=== PATIENT | female | born 1960 | race Caucasian/White ===

== ENCOUNTER → 2018-04-27 15:19 | Outpatient (CLI) | payer OTHER, SELFPAY ==
--- NOTE | 2018-04-27 | DI.MG.S_ITS ---
BILATERAL DIGITAL SCREENING MAMMOGRAM 3D/2D WITH CAD: 04/27/2018 CLINICAL: Routine screening. Baseline exam. No prior exams were available for comparison. The tissue of both breasts is heterogeneously dense. This may lower the sensitivity of mammography. Current study was also evaluated with a Computer Aided Detection (CAD) system. There is architectural distortion in the left breast at 1 o'clock middle depth. No other significant masses, calcifications, or other findings are seen in either breast. IMPRESSION: INCOMPLETE: NEEDS ADDITIONAL IMAGING EVALUATION The architectural distortion in the left breast is indeterminate. Additional views with possible ultrasound are recommended. This exam was interpreted at Station ID: [id number]. NOTE: For mammograms, a report in lay terms will be sent to the patient. Approximately 15% of breast malignancies will not be visualized mammographically. In the management of a palpable breast mass, a negative mammogram must not discourage biopsy of a clinically suspicious lesion. Electronically Signed By: Jannie porter/karlene:04/27/2018 16:28:33 letter sent: Additional Imaging Needed ACR BI-RADS Category 0: Incomplete 3340F
== END ==
PROVIDERS: Family Provider Family Medicine; PCP Family Medicine; Visit Provider Family Medicine
DX: Z12.31 Encounter for screening mammogram for malignant neoplasm of breast (principal)
CPT/HCPCS: 77063; 77067

== ENCOUNTER 2018-05-12 09:32 | Day surgery (SDC) | payer OTHER, SELFPAY ==
[2018-05-12 10:11] VITALS: BP 131/81; PULSE 75; RESP 17; TEMP 36.8; O2SAT 98
[2018-05-12 10:23] VITALS: BMI 26.6
[2018-05-12] MEDS: SODIUM CHLORIDE 0.9% 1,000 ML 200 ML IV (10:25)
--- NOTE | 2018-05-12 10:36 | PM.OP.ENDO ---
Operative Date/Time/Diagnoses Date of procedure: 05/12/18 Time of procedure: 10:36 Pre-op diagnosis: Screening exam. This is his 1st colonoscopy. Post-op diagnosis: same (Two small ascending colon polyps 1 adjacent to the other. Sigmoid diverticulosis. Internal hemorrhoids.) Procedure & Clinicians Study performed: Colonoscopy with cold biopsy Same procedure as scheduled: Yes Indications: Screening Surgeon: Tae Francois Procedure Notes SCOAP/Timeout: Performed Procedure in detail: The patient was placed in the left lateral decubitus position and underwent IV sedation directed by the surgeon consisting of fentanyl and Versed. Digital exam was unremarkable. Prostate fairly flat.. The scope was inserted and advanced through the rectum into the sigmoid, descending, transverse, and ascending colon. Extensive sigmoid diverticulosis was noted.. The cecum was reached identified by the ileocecal valve and the appendiceal opening. The scope was gradually brought out. Polyps were found at[the ascending colon. There were 2 small lesions 1 adjacent to the other. They were biopsy to complete removal.]. The scope ultimately was retroflexed in the rectum. The appearance was remarkable for internal hemorrhoids without ulceration.. The scope was removed and the patient tolerated the procedure well Scope withdrawal time: 6.5 min Sedation minutes: 23 Findings: diverticulosis (Sigmoid), internal hemorrhoids and polyp (Two small polyps in the ascending colon.) Specimen(s): other (Polyps) Complications: none
--- NOTE | 2018-05-12 11:03 | PM.HP.1 ---
History of Present Illness Date Patient Seen: 05/12/18 Time Patient Seen: 11:03 Chief complaint: [id number] Narrative: The patient is woman here for her 1st colonoscopy. She is 57. No blood in her stool no family history of colon cancer. Patient History Surgical History History of vaginal hysterectomy (Resolved) Family & Social History Family History: Reviewed 05/12/18 by Tae Francois MD Social History: household members spouse Meds Home Medications Medication Instructions Recorded Confirmed Type cetirizine 10 mg PO QDAYP #0 tab 05/16/16 05/12/18 History dextroamphetamine-amphetamine 10 mg PO QAM #0 tab 05/16/16 05/12/18 History [Adderall] ascorbic acid (vitamin C) [Vitamin 500 mg PO DAILY 05/12/18 05/12/18 History C] glucosamine [id number] 1 tab PO TID 05/12/18 05/12/18 History ibuprofen 2 tab PO BID PRN 05/12/18 05/12/18 History magnesium oxide 400 mg PO DAILY 05/12/18 05/12/18 History Allergies Allergy/AdvReac Type Severity Reaction Status Date / Time Sulfa (Sulfonamide Allergy Severe Unverified 12/28/17 12:33 Antibiotics) [SULFA (SULFONAMIDE ANTIBIOTICS)] Review of Systems Review of Systems Nasal drip All systems reviewed & are unremarkable except as noted in HPI and below Exam Vital Signs (past 8 hours): - 05/12/18 10:11 Temperature 98.2 F Pulse Rate 75 Respiratory Rate 17 Blood Pressure 131/81 H Pulse Oximetry 98 Oxygen Delivery Method Room Air Narrative Exam Narrative: Operative no apparent distress. Nose is somewhat distorted. Lungs are clear to auscultation no rales rhonchi. Heart regular rate and rhythm without murmur gallop. Abdomen is soft nontender without mass. Liver and spleen are not enlarged. Patient is alert and oriented x3. Assessment & Plan Plan: Assessment/Plan Narrative: Patient for screening colonoscopy. I have discussed the procedure and the rationale with the patient including risks of bleeding, perforation which would necessitate a major operation, failure to find remove all lesions and the potential to tattoo. They appeared to understand and wished to proceed.
--- NOTE | 2018-05-12 11:07 | P.HP_ITS ---
History of Present Illness Date Patient Seen: 05/12/18 Time Patient Seen: 11:03 Chief complaint: [id number] Narrative: The patient is woman here for her 1st colonoscopy. She is 57. No blood in her stool no family history of colon cancer. Patient History Surgical History History of vaginal hysterectomy (Resolved) Family & Social History Family History: Reviewed 05/12/18 by Tae Francois MD Social History: household members spouse Meds Home Medications Medication Instructions Recorded Confirmed Type cetirizine 10 mg PO QDAYP #0 tab 05/16/16 05/12/18 History dextroamphetamine-amphetamine 10 mg PO QAM #0 tab 05/16/16 05/12/18 History [Adderall] ascorbic acid (vitamin C) [Vitamin 500 mg PO DAILY 05/12/18 05/12/18 History C] glucosamine WWj-fis-uwviqdfiib 1 tab PO TID 05/12/18 05/12/18 History ibuprofen 2 tab PO BID PRN 05/12/18 05/12/18 History magnesium oxide 400 mg PO DAILY 05/12/18 05/12/18 History Allergies Allergy/AdvReac Type Severity Reaction Status Date / Time Sulfa (Sulfonamide Allergy Severe Unverified 12/28/17 12:33 Antibiotics) [SULFA (SULFONAMIDE ANTIBIOTICS)] Review of Systems Review of Systems Nasal drip All systems reviewed & are unremarkable except as noted in HPI and below Exam Vital Signs (past 8 hours): - 05/12/18 10:11 Temperature 98.2 F Pulse Rate 75 Respiratory Rate 17 Blood Pressure 131/81 H Pulse Oximetry 98 Oxygen Delivery Method Room Air Narrative Exam Narrative: Operative no apparent distress. Nose is somewhat distorted. Lungs are clear to auscultation no rales rhonchi. Heart regular rate and rhythm without murmur gallop. Abdomen is soft nontender without mass. Liver and spleen are not enlarged. Patient is alert and oriented x3. Assessment & Plan Plan: Assessment/Plan Narrative: Patient for screening colonoscopy. I have discussed the procedure and the rationale with the patient including risks of bleeding, perforation which would necessitate a major operation, failure to find remove all lesions and the potential to tattoo. They appeared to understand and wished to proceed.
--- NOTE | 2018-05-12 11:07 | PM.PREOP ---
Pre-operative Note Interval Note Pre-op Check: Yes History & Physical exam performed today by Physician Changes: No ASA Class (for procedural sedation): I
[2018-05-12] MEDS: MIDAZOLAM 5 MG/5 ML VIAL IV (11:19)
[2018-05-12] MEDS: fentaNYL 250 MCG/5 ML INJ IV (11:19)
--- NOTE | 2018-05-12 11:40 | PM.OP.ENDO ---
Operative Date/Time/Diagnoses Date of procedure: 05/12/18 Time of procedure: 11:40 Pre-op diagnosis: Screening exam. This is her 1st colonoscopy Post-op diagnosis: same (Diverticulosis sigmoid colon) Procedure & Clinicians Study performed: Colonoscopy Same procedure as scheduled: Yes Indications: Screening Surgeon: Tae Francois Procedure Notes SCOAP/Timeout: Performed Procedure in detail: The patient was placed in the left lateral decubitus position and underwent IV sedation directed by the surgeon consisting of fentanyl and Versed. Digital exam was unremarkable. The scope was inserted and advanced through the rectum into the sigmoid, descending, transverse, and ascending colon. The patient was noted to have sigmoid diverticulosis. No other lesions were seen.. The cecum was reached identified by the ileocecal valve and the appendiceal opening. The ileocecal valve was[successfully] cannulated. The terminal ileum was normal in appearance. The scope was gradually brought out. No Polyps were found. The scope was brought into the rectum and I attempted to retroflex the scope. I was not successful. The scope was very slowly brought through the anal canal. The appearance was[normal]. The scope was removed and the patient tolerated the procedure well Scope withdrawal time: 6.75 min Sedation minutes: 26 Findings: diverticulosis (Sigmoid) Specimen(s): none sent Complications: none Recommendations: Colonscopy in 10 years Follow up: as needed Disposition: PACU
[2018-05-12 11:42] VITALS: BP 133/74; PULSE 71; RESP 12; TEMP 36.7; O2SAT 95
[2018-05-12 11:47] VITALS: BP 122/76; PULSE 73; RESP 16; O2SAT 97
[2018-05-12 11:57] VITALS: BP 114/77; PULSE 71; RESP 15; TEMP 36.6; O2SAT 99
--- NOTE | 2018-05-12 12:15 | SUR.PHASEII ---
When changing became a bit lightheaded and laid back flat briefly. Reminded to change position slowly and think about all related to mobility. It is recommended that once home that a nap before anything else would be beneficial.
--- NOTE | 2018-05-12 12:27 | SUR.PHASEII ---
Desired discharge home. Reminded of med effects and recommended slowed/considered mobility as well as nap once leaving hospital.
== END 2018-05-12 12:25 | disposition home or self-care (01) ==
PROVIDERS: Family Provider Family Medicine; PCP Family Medicine; Visit Provider Specialist
PROC: 0DJD8ZZ Inspection of Lower Intestinal Tract, Via Natural or Artificial Opening Endoscopic (ICD-10-PCS; CPT 45378; principal; 2018-05-12 10:45)
DX: Z12.11 Encounter for screening for malignant neoplasm of colon (principal); K57.30 Diverticulosis of large intestine without perforation or abscess without bleeding
CPT/HCPCS: 45378; 99152; 99153; J2250; J3010

== ENCOUNTER → 2018-05-17 13:00 | Outpatient (CLI) | payer OTHER, SELFPAY ==
--- NOTE | 2018-05-17 | DI.US.S_ITS ---
ULTRASOUND OF LEFT BREAST: 05/17/2018 CLINICAL: Patient returns today to evaluate an architectural distortion in the left breast. Comparison is made to exams dated: 05/17/2018 mammogram and 04/27/2018 mammogram - [facility]. Real-time ultrasound of the left breast was performed on the area of interest. IMPRESSION: PROBABLY BENIGN - FOLLOW-UP RECOMMENDED There is no abnormality seen in the left breast to correspond with the architectural distortion in the upper outer quadrant. A follow-up mammogram in 6 months is recommended to demonstrate stability. This exam was interpreted at Station ID: [id number]. Electronically Signed By: Jose valentine/karlene:05/17/2018 19:17:03 letter sent: Followup Recommended Ultrasound BI-RADS: 3 Probably benign
--- NOTE | 2018-05-17 | DI.MG.S_ITS ---
UNILATERAL LEFT DIGITAL DIAGNOSTIC MAMMOGRAM 3D/2D WITH ADDITIONAL VIEWS: 05/17/2018 CLINICAL: Additional evaluation requested from prior study. Comparison is made to exam [facility]. The tissue of the left breast is heterogeneously dense. This may lower the sensitivity of mammography. There is irregular equal density architectural distortion with an indistinct margin in the left breast at 1 o'clock middle depth. This is less prominent. No other significant masses or calcifications are seen in the breast. IMPRESSION: INCOMPLETE: NEEDS ADDITIONAL IMAGING EVALUATION The irregular equal density architectural distortion in the left breast is indeterminate. An ultrasound is recommended. This exam was interpreted at Station ID: [id number]. NOTE: For mammograms, a report in lay terms will be sent to the patient. Approximately 15% of breast malignancies will not be visualized mammographically. In the management of a palpable breast mass, a negative mammogram must not discourage biopsy of a clinically suspicious lesion. Electronically Signed By: Jose valentine/karlene:05/17/2018 13:44:54 letter sent: Need Ultrasound ACR BI-RADS Category 0: Incomplete 3340F
== END ==
PROVIDERS: PCP Family Medicine; Visit Provider Family Medicine
DX: R92.8 Other abnormal and inconclusive findings on diagnostic imaging of breast (principal)
CPT/HCPCS: 76642; 77065; G0279

== ENCOUNTER 2018-08-31 08:52 | Emergency (ER) | payer OTHER, SELFPAY ==
[2018-08-31 08:59] VITALS: BP 177/75; PULSE 58; RESP 20; TEMP 36.7; O2SAT 100; BMI 27.3
--- NOTE | 2018-08-31 09:10 | ED.ANIMALBIT ---
HPI - Animal Bite General Chief Complaint: Animal Bite Stated Complaint: CAT BITE Time Seen by Provider: 08/31/18 08:56 Source: patient Mode of arrival: ambulatory Limitations: no limitations History of Present Illness HPI narrative: Patient states that she was bitten by her cat yesterday. She states the cat occasionally will bite when she is petting it, and that this behavior is not unusual for the cat. She states that the cat bit her right hand, and that she instinctively pulled away, causing the cats to use to slice through her skin and create a small laceration. Patient states that she was seen yesterday by a provider at a different facility, who started her on Augmentin and did an x-ray, which was unremarkable. Patient states that overnight, senna swelling has gone down, but that the red area has increased. Patient denies fevers, chills, or otherwise feeling ill. She states she was not injured in any other way, and has otherwise been without medical concerns recently. No other complaints at this time. Related Data Home Medications Medication Instructions Recorded Confirmed cetirizine 10 mg PO QDAYP #0 tab 05/16/16 05/12/18 dextroamphetamine-amphetamine 10 mg PO QAM #0 tab 05/16/16 05/12/18 [Adderall] ascorbic acid (vitamin C) [Vitamin 500 mg PO DAILY 05/12/18 05/12/18 C] glucosamine [id number]-[id number]-uqrmrajpdg 1 tab PO TID 05/12/18 05/12/18 ibuprofen 2 tab PO BID PRN 05/12/18 05/12/18 magnesium oxide 400 mg PO DAILY 05/12/18 05/12/18 Allergies Allergy/AdvReac Type Severity Reaction Status Date / Time Sulfa (Sulfonamide Allergy Intermediate Rash Verified 08/31/18 09:22 Antibiotics) [SULFA (SULFONAMIDE ANTIBIOTICS)] Review of Systems Review of Systems All systems reviewed & are unremarkable except as noted in HPI and below Constitutional Denies chills, Denies fever(s), Denies lethargy and Denies weakness Eyes Denies change in vision, Denies eye discharge, Denies irritation and Denies loss of vision ENT Ears, Nose, Mouth, and Throat: Denies change in voice, Denies neck pain and Denies sore throat Cardiovascular Denies chest pain, Denies irregular heart rhythm, Denies lightheadedness, Denies palpitations, Denies dyspnea, Denies dyspnea on exertion and Denies orthopnea Respiratory Denies cough, Denies dyspnea, Denies dyspnea on exertion and Denies wheezing Gastrointestinal Gastrointestinal: Denies abdominal pain, Denies change in bowel habits, Denies diarrhea, Denies nausea and Denies vomiting Genitourinary Denies hematuria, Denies flank pain, Denies urinary incontinence and Denies urinary urgency Musculoskeletal Denies neck pain Integumentary/Breasts Denies pruritus, Reports erythema, Reports skin pain (Tenderness over erythematous area), Reports skin swelling (Mild) and Reports wounds Neurologic Denies confusion, Denies loss of vision and Denies weakness Psychiatric Denies anxiety, Denies confusion, Denies depression, Denies homicidal ideation and Denies suicidal ideation Endocrine Denies palpitations Hematologic/Lymphatic Denies easy bruising Allergic/Immunologic Denies wheezing [facility] Medical History Healthy adult (Acute) Surgical History H/O colonoscopy (Acute) History of vaginal hysterectomy (Resolved) Social History household members: spouse Smoking Status: Never smoker Exam Initial Vital Signs Initial Vital Signs: Vital Signs Temperature 98.1 F 08/31/18 08:59 Pulse Rate 58 L 08/31/18 08:59 Respiratory Rate 20 08/31/18 08:59 Blood Pressure 177/75 H 08/31/18 08:59 Pulse Oximetry 100 08/31/18 08:59 Const General: cooperative and well developed Nutritional Appearance: well nourished Orientation: alert, awake, oriented x3 and not confused [facility] Head: normocephalic and atraumatic Ears: external ears normal Nose: external nose normal and No nasal discharge Face and sinus: face symmetric and No dry mucous membranes Mouth: oral mucosae normal and moist mucous membranes Teeth and gingiva: dentition normal Eyes General: appearance normal, both eyes and all related structures Eyelids: eyelids normal Conjunctivae: conjunctivae normal Sclera: sclerae normal Pupils: PERRL EOM: EOM intact bilaterally Neck Neck: normal visual inspection, trachea midline, No lymphadenopathy, No midline deformity and No JVD Lymphatic: No lymphedema Chest Chest: normal inspection of the chest Resp Effort & Inspection: normal respiratory effort, able to speak in complete sentences, no respiratory distress and no use of accessory muscles Auscultation: clear to auscultation bilaterally, no rales, no rhonchi and no wheezes Cardio Rate: regular rate Rhythm: regular rhythm Heart Sounds: no click, no gallops, no murmurs and no rubs Pulses: normal peripheral pulses GI Inspection: non-distended Palpation: soft, no hepatosplenomegaly, No guarding, No pulsatile mass and No tender Auscultation: normal bowel sounds Back/Spine/Pelvis Back: No CVA tenderness Cervical Spine: cervical ROM normal and No pain with cervical ROM Thoracic/Lumbar Spine: thoracic and lumbar spine normal to inspection Skin General: no rashes or lesions noted, erythema (Over dorsum of right hand and wrist. Extends to the 3rd MCP joint dorsally, and to about 5 cm proximal to the wrist joint dorsally. No volar or palmar involvement.), No jaundice and No petechiae Other: No flexor tendon or extensor tendon tenderness. Patient has a 0.75 cm laceration which is linear, over her right dorsal wrist. There is no bleeding, foreign body, or swelling associated with this. No drainage. Patient has a puncture wound 1.5 cm to the ulnar aspect of the laceration. Neuro General: alert, oriented x3, gait normal and no focal motor deficits Speech: speech normal Extrem General: full ROM, no clubbing, cyanosis or edema, no pedal edema and no calf tenderness Psych Appearance: well kempt Mental Status: mental status grossly normal Attitude: cooperative Thought Content: normal and suicidality Judgment: judgment good Course Course Narrative: Patient was treated with Unasyn in the emergency department, and her tetanus was also updated. The patient will go home and continue her Augmentin, but we have discussed that if the infected area continues to worsen over the next 12 hr, she should come back for another dose of IV antibiotics on recheck. The other, usual indications for return have also been given. Patient expresses understanding. Orders Ordered: Discontinued Medications Diphtheria/Tetanus/Acell Pertussis (Adacel) 0.5 ml IM .ONCE ONE Stop: 08/31/18 09:11 Last Admin: 08/31/18 09:22 Dose: 0.5 ml Ampicillin Sodium/Sulbactam (Sodium 3 gm/ Sodium Chloride) 100 mls @ 100 mls/hr IV NOW ONE Stop: 08/31/18 09:10 Last Infusion: 08/31/18 10:35 Dose: 0 mls/hr Admin: 08/31/18 09:35 Dose: 100 mls/hr Vital Signs - 8 hr 08/31/18 08:59 Temperature 98.1 F Pulse Rate 58 L Respiratory Rate 20 Blood Pressure 177/75 H Pulse Oximetry 100 MDM - Animal Bite Medical Records Attestation: I reviewed the patient's medical records. Discharge Plan Departure Patient Disposition: Home Clinical Impression: Cat bite Discharge Date/Time: 08/31/18 10:42 Interventions: ED Discharge Assessment Last Done: 08/31/18 10:44 Instructions: DI for Cat Bite Activity Restrictions/Additional Instructions: You have been treated with an IV dose of antibiotics, which is related to your oral antibiotic. Please continue on your oral antibiotics (you may take your dose this afternoon/evening, as planned). If your symptoms are still worsening after another 24 hours, please have the infection rechecked. Prescriptions: No Action cetirizine 10 MG tablet 10 mg PO QDAYP Qty: 0 RF: 0 dextroamphetamine-amphetamine [Adderall] 10 MG tablet 10 mg PO QAM Qty: 0 RF: 0 ibuprofen 200 mg Tablet 2 tab PO BID PRN (Reason: Pain, Mild) RF: 0 magnesium oxide 400 mg Tablet 400 mg PO DAILY RF: 0 ascorbic acid (vitamin C) [Vitamin C] 500 mg Tablet,Chewable 500 mg PO DAILY RF: 0 glucosamine [id number]-lgs-tiqycpooqt 500-167-400 mg Tablet 1 tab PO TID RF: 0 Referrals: Lior Jonhson DO [Primary Care Provider] - (Please follow up, as needed.)
--- NOTE | 2018-08-31 09:14 | ED_ITS ---
HPI - Animal Bite General Chief Complaint: Animal Bite Stated Complaint: CAT BITE Time Seen by Provider: 08/31/18 08:56 Source: patient Mode of arrival: ambulatory Limitations: no limitations History of Present Illness HPI narrative: Patient states that she was bitten by her cat yesterday. She states the cat occasionally will bite when she is petting it, and that this behavior is not unusual for the cat. She states that the cat bit her right hand , and that she instinctively pulled away, causing the cats to use to slice through her skin and create a small laceration. Patient states that she was seen yesterday by a provider at a different facility, who started her on Augmentin and did an x-ray, which was unremarkable. Patient states that overnight, senna swelling has gone down, but that the red area has increased. Patient denies fevers, chills, or otherwise feeling ill. She states she was not injured in any other way, and has otherwise been without medical concerns recently. No other complaints at this time. Related Data Home Medications Medication Instructions Recorded Confirmed cetirizine 10 mg PO QDAYP #0 tab 05/16/16 05/12/18 dextroamphetamine-amphetamine 10 mg PO QAM #0 tab 05/16/16 05/12/18 [Adderall] ascorbic acid (vitamin C) [Vitamin 500 mg PO DAILY 05/12/18 05/12/18 C] glucosamine [id number] 1 tab PO TID 05/12/18 05/12/18 ibuprofen 2 tab PO BID PRN 05/12/18 05/12/18 magnesium oxide 400 mg PO DAILY 05/12/18 05/12/18 Allergies Allergy/AdvReac Type Severity Reaction Status Date / Time Sulfa (Sulfonamide Allergy Intermediate Rash Verified 08/31/18 09:22 Antibiotics) [SULFA (SULFONAMIDE ANTIBIOTICS)] Review of Systems Review of Systems All systems reviewed & are unremarkable except as noted in HPI and below Constitutional Denies chills, Denies fever(s), Denies lethargy and Denies weakness Eyes Denies change in vision, Denies eye discharge, Denies irritation and Denies loss of vision ENT Ears, Nose, Mouth, and Throat: Denies change in voice, Denies neck pain and Denies sore throat Cardiovascular Denies chest pain, Denies irregular heart rhythm, Denies lightheadedness, Denies palpitations, Denies dyspnea, Denies dyspnea on exertion and Denies orthopnea Respiratory Denies cough, Denies dyspnea, Denies dyspnea on exertion and Denies wheezing Gastrointestinal Gastrointestinal: Denies abdominal pain, Denies change in bowel habits, Denies diarrhea, Denies nausea and Denies vomiting Genitourinary Denies hematuria, Denies flank pain, Denies urinary incontinence and Denies urinary urgency Musculoskeletal Denies neck pain Integumentary/Breasts Denies pruritus, Reports erythema, Reports skin pain (Tenderness over erythematous area), Reports skin swelling (Mild) and Reports wounds Neurologic Denies confusion, Denies loss of vision and Denies weakness Psychiatric Denies anxiety, Denies confusion, Denies depression, Denies homicidal ideation and Denies suicidal ideation Endocrine Denies palpitations Hematologic/Lymphatic Denies easy bruising Allergic/Immunologic Denies wheezing [facility] Medical History Healthy adult (Acute) Surgical History H/O colonoscopy (Acute) History of vaginal hysterectomy (Resolved) Social History household members: spouse Smoking Status: Never smoker Exam Initial Vital Signs Initial Vital Signs: Vital Signs Temperature 98.1 F 08/31/18 08:59 Pulse Rate 58 L 08/31/18 08:59 Respiratory Rate 20 08/31/18 08:59 Blood Pressure 177/75 H 08/31/18 08:59 Pulse Oximetry 100 08/31/18 08:59 Const General: cooperative and well developed Nutritional Appearance: well nourished Orientation: alert, awake, oriented x3 and not confused [facility] Head: normocephalic and atraumatic Ears: external ears normal Nose: external nose normal and No nasal discharge Face and sinus: face symmetric and No dry mucous membranes Mouth: oral mucosae normal and moist mucous membranes Teeth and gingiva: dentition normal Eyes General: appearance normal, both eyes and all related structures Eyelids: eyelids normal Conjunctivae: conjunctivae normal Sclera: sclerae normal Pupils: PERRL EOM: EOM intact bilaterally Neck Neck: normal visual inspection, trachea midline, No lymphadenopathy, No midline deformity and No JVD Lymphatic: No lymphedema Chest Chest: normal inspection of the chest Resp Effort & Inspection: normal respiratory effort, able to speak in complete sentences, no respiratory distress and no use of accessory muscles Auscultation: clear to auscultation bilaterally, no rales, no rhonchi and no wheezes Cardio Rate: regular rate Rhythm: regular rhythm Heart Sounds: no click, no gallops, no murmurs and no rubs Pulses: normal peripheral pulses GI Inspection: non-distended Palpation: soft, no hepatosplenomegaly, No guarding, No pulsatile mass and No tender Auscultation: normal bowel sounds Back/Spine/Pelvis Back: No CVA tenderness Cervical Spine: cervical ROM normal and No pain with cervical ROM Thoracic/Lumbar Spine: thoracic and lumbar spine normal to inspection Skin General: no rashes or lesions noted, erythema (Over dorsum of right hand and wrist. Extends to the 3rd MCP joint dorsally, and to about 5 cm proximal to the wrist joint dorsally. No volar or palmar involvement.), No jaundice and No petechiae Other: No flexor tendon or extensor tendon tenderness. Patient has a 0.75 cm laceration which is linear, over her right dorsal wrist. There is no bleeding, foreign body, or swelling associated with this. No drainage. Patient has a puncture wound 1.5 cm to the ulnar aspect of the laceration. Neuro General: alert, oriented x3, gait normal and no focal motor deficits Speech: speech normal Extrem General: full ROM, no clubbing, cyanosis or edema, no pedal edema and no calf tenderness Psych Appearance: well kempt Mental Status: mental status grossly normal Attitude: cooperative Thought Content: normal and suicidality Judgment: judgment good Course Course Narrative: Patient was treated with Unasyn in the emergency department, and her tetanus was also updated. The patient will go home and continue her Augmentin, but we have discussed that if the infected area continues to worsen over the next 12 hr, she should come back for another dose of IV antibiotics on recheck. The other, usual indications for return have also been given. Patient expresses understanding. Orders Ordered: Discontinued Medications Diphtheria/Tetanus/Acell Pertussis (Adacel) 0.5 ml IM .ONCE ONE Stop: 08/31/18 09:11 Last Admin: 08/31/18 09:22 Dose: 0.5 ml Ampicillin Sodium/Sulbactam (Sodium 3 gm/ Sodium Chloride) 100 mls @ 100 mls/ hr IV NOW ONE Stop: 08/31/18 09:10 Last Infusion: 08/31/18 10:35 Dose: 0 mls/hr Admin: 08/31/18 09:35 Dose: 100 mls/hr Vital Signs - 8 hr 08/31/18 08:59 Temperature 98.1 F Pulse Rate 58 L Respiratory Rate 20 Blood Pressure 177/75 H Pulse Oximetry 100 MDM - Animal Bite Medical Records Attestation: I reviewed the patient's medical records. Discharge Plan Departure Patient Disposition: Home Clinical Impression: Cat bite Discharge Date/Time: 08/31/18 10:42 Interventions: ED Discharge Assessment Last Done: 08/31/18 10:44 Instructions: DI for Cat Bite Activity Restrictions/Additional Instructions: You have been treated with an IV dose of antibiotics, which is related to your oral antibiotic. Please continue on your oral antibiotics (you may take your dose this afternoon/evening, as planned). If your symptoms are still worsening after another 24 hours, please have the infection rechecked. Prescriptions: No Action cetirizine 10 MG tablet 10 mg PO QDAYP Qty: 0 RF: 0 dextroamphetamine-amphetamine [Adderall] 10 MG tablet 10 mg PO QAM Qty: 0 RF: 0 ibuprofen 200 mg Tablet 2 tab PO BID PRN (Reason: Pain, Mild) RF: 0 magnesium oxide 400 mg Tablet 400 mg PO DAILY RF: 0 ascorbic acid (vitamin C) [Vitamin C] 500 mg Tablet,Chewable 500 mg PO DAILY RF: 0 glucosamine [id number] 500-167-400 mg Tablet 1 tab PO TID RF: 0 Referrals: Lior Johnson DO [Primary Care Provider] - (Please follow up, as needed.)
[2018-08-31] MEDS: TET,DIPH,PERTUSS(ACELL),VAC/PF 0.5 ML SYRINGE IM (09:22)
[2018-08-31] MEDS: AMPICILLIN/SULBACTAM 3 GM 3 GM in SODIUM CHLORIDE 0.9% 100 ML IV (09:35)
[2018-08-31 10:44] VITALS: BP 147/72; PULSE 59; RESP 18; O2SAT 99
== END 2018-08-31 10:42 | disposition home or self-care (01) ==
LOC: ED 09:37
PROVIDERS: Emergency Provider Emergency Medicine; PCP Family Medicine
DX: S61.451A Open bite of right hand, initial encounter (principal); W55.01XA Bitten by cat, initial encounter
CPT/HCPCS: 36591; 90471; 96365; 99283; 99284; 90715; J0295

== ENCOUNTER → 2018-11-23 08:06 | Outpatient (CLI) | payer OTHER, SELFPAY ==
--- NOTE | 2018-11-23 | DI.MG.S_ITS ---
UNILATERAL LEFT DIGITAL DIAGNOSTIC MAMMOGRAM 3D/2D SHORT-TERM FOLLOW-UP: 11/23/2018 CLINICAL: Patient returns for a 6 month follow up of the left breast. Comparison is made to exams dated: 05/17/2018 mammogram and 04/27/2018 mammogram - [facility]. The tissue of left breast is heterogeneously dense. This may lower the sensitivity of mammography. Previously identified architectural distortion in the upper outer left breast at middle depth on comparison screening mammogram of 04/27/2018 and diagnostic mammogram of 05/17/2018 persists with additional views. It appears stable in size to prior exams. There is a subcentimeter associated focal asymmetry. IMPRESSION: INCOMPLETE: NEEDS ADDITIONAL IMAGING EVALUATION Previously identified architectural distortion in the upper outer left breast at middle depth on comparison screening mammogram of 04/27/2018 and diagnostic mammogram of 05/17/2018 persists with additional views. A targeted ultrasound is recommended for further evaluation, and will be performed immediately following this exam. This exam was interpreted at Station ID: [id number]. NOTE: For mammograms, a report in lay terms will be sent to the patient. Approximately 15% of breast malignancies will not be visualized mammographically. In the management of a palpable breast mass, a negative mammogram must not discourage biopsy of a clinically suspicious lesion. Electronically Signed By: Juan Pop M.D. ecl/:11/23/2018 10:28:02 letter sent: Additional Imaging Needed ACR BI-RADS Category 0: Incomplete 3340F
--- NOTE | 2018-11-23 08:00 | DI.US.S_ITS ---
Patient Name: DESIREE DAVISON date: 1960 Sex: F Attending Physician: THO Indications: Date: 11/23/2018 09:41 At the request of: HANS NETTLES Procedure: US breast LT limited LIMITED ULTRASOUND OF LEFT BREAST: 11/23/2018 CLINICAL: Patient returns today to evaluate an architectural distortion in the left breast. Comparison is made to exams dated: 11/23/2018 mammogram, 05/17/2018 ultrasound, 05/17/2018 mammogram, and 04/27/2018 mammogram - [facility]. Real-time and Doppler ultrasound of the left breast upper outer quadrant were performed. Caal scale images of the real-time examination were reviewed. No underlying breast mass or abnormality is identified. There is no ultrasound correlate for the previously identified architectural distortion in the upper outer left breast at middle depth on comparison mammograms. IMPRESSION: INCOMPLETE: NEEDS ADDITIONAL IMAGING EVALUATION No ultrasound correlate for the previously identified architectural distortion in the upper outer left breast at middle depth on comparison mammograms. A breast MRI with contrast is recommended for further evaluation, as is a follow-up mammogram and possible ultrasound in 6 months should MRI not be pursued or demonstrate indeterminate findings. The patient is advised to monitor her breasts and to return sooner for re- evaluation should she feel anything grow or change. This exam was interpreted at Station ID: [id number]. Electronically Signed By: Juan Pop M.D. ecl/:11/23/2018 10:32:04 letter sent: Need MRI Ultrasound BI-RADS: 0 Indeterminate
== END ==
PROVIDERS: PCP Family Medicine; Visit Provider Family Medicine
DX: R92.8 Other abnormal and inconclusive findings on diagnostic imaging of breast (principal); N64.89 Other specified disorders of breast
CPT/HCPCS: 76642; 77065; G0279

== ENCOUNTER → 2019-01-17 09:12 | Outpatient (CLI) | payer OTHER, SELFPAY ==
--- NOTE | 2019-01-17 09:14 | DI.MRI.S_ITS ---
BREAST MRI OF BOTH BREASTS- WITH CAD: 01/17/2019 CLINICAL: Architectural distortion of the left breast. Comparison is made to exams dated: 11/23/2018 ultrasound, 11/23/2018 mammogram, 05/17/2018 ultrasound, and 05/17/2018 mammogram - [facility]. Interpretation of this MRI was correlated with available mammograms and ultrasounds. Informed consent was obtained from the patient. 20 cc of gadolinium contrast was injected. Axial T1, T2, sagittal T1, and pre and post contrast T1 images were obtained with a dedicated breast coil. Post processing was performed including computer aided calculations of any tumor volumes and dimensions. Bilateral background breast enhancement is minimal. Right breast: No discrete mass or suspicious enhancement to suggest malignancy. Left breast: No discrete mass or suspicious enhancement to suggest malignancy. There is asymmetric fibroglandular breast tissue within the upper-outer quadrant of the left breast corresponding to the mammographic findings. Miscellaneous: No evidence of internal mammary or axillary lymphadenopathy. IMPRESSION: PROBABLY BENIGN 1. No evidence of malignancy in the right or left breast. 2. Asymmetric fibroglandular breast tissue demonstrated in the upper-outer quadrant of the left breast without a discrete mass or suspicious enhancement. Followup left breast mammogram is recommended in 6 months to demonstrate stability of the mammographic findings. This exam was interpreted at Station ID: [id number]. Electronically Signed By: Jose valentine/:01/17/2019 17:23:29 letter sent: Followup Recommended ACR BI-RADS Category 3: Probably benign 3343F
== END ==
PROVIDERS: PCP Family Medicine; Visit Provider Specialist
DX: R92.8 Other abnormal and inconclusive findings on diagnostic imaging of breast (principal); N64.89 Other specified disorders of breast
CPT/HCPCS: 77049; A9579

== ENCOUNTER → 2019-06-16 10:18 | Outpatient (CLI) | payer OTHER, SELFPAY ==
--- NOTE | 2019-06-16 10:21 | DI.RAD.S_ITS ---
PROCEDURE: XR FOOT RT MIN 3V INDICATIONS: foot pain TECHNIQUE: 3 views of the foot were acquired. COMPARISON: None. FINDINGS: Bones: No fractures or dislocations. No suspicious bony lesions. Soft tissues: No tibiotalar joint effusion. Achilles tendon appears normal. IMPRESSION: 1. No fracture or dislocation. Dictated by: Jose Ordoñez M.D. on 06/16/2019 at 10:00 Approved by: Jose Ordoñez M.D. on 06/16/2019 at 10:01
== END ==
PROVIDERS: PCP Family Medicine; Visit Provider Physician Assistant
DX: M79.671 Pain in right foot (principal)
CPT/HCPCS: 73630

== ENCOUNTER → 2019-09-07 08:00 | Outpatient (CLI) | payer OTHER, SELFPAY ==
--- NOTE | 2019-09-07 08:00 | DI.MG.S_ITS ---
BILATERAL DIGITAL DIAGNOSTIC MAMMOGRAM 3D/2D SHORT-TERM FOLLOW-UP: 09/07/2019 CLINICAL: Patient returns for a 12 month follow up left breast. Comparison is made to exams dated: 01/17/2019 breast MRI, 11/23/2018 ultrasound, 11/23/2018 mammogram, and 05/17/2018 mammogram - [facility]. The tissue of both breasts is heterogeneously dense. This may lower the sensitivity of mammography. The possible architectural distortion in the left breast at 1 o'clock middle depth is not reproduced and presumably represented superimposed breast tissue. No other significant masses, calcifications, or other findings are seen in either breast. IMPRESSION: The possible architectural distortion in the left breast likely respresents superimposed fibroglandular tissue and is benign. There is no mammographic evidence of malignancy. A 1 year screening mammogram is recommended. This exam was interpreted at Station ID: [id number]. NOTE: For mammograms, a report in lay terms will be sent to the patient. Approximately 15% of breast malignancies will not be visualized mammographically. In the management of a palpable breast mass, a negative mammogram must not discourage biopsy of a clinically suspicious lesion. Electronically Signed By: Jannie porter/:09/07/2019 09:11:18 letter sent: Normal Exam ACR BI-RADS Category 2: Benign Finding(s) 3342F
== END ==
PROVIDERS: PCP Family Medicine; Visit Provider Specialist
DX: R92.8 Other abnormal and inconclusive findings on diagnostic imaging of breast (principal)
CPT/HCPCS: 77066; G0279

== ENCOUNTER 2021-09-20 16:01 | Observation (INO) | payer OTHER, SELFPAY ==
[2021-09-20] VITALS (17 sets, daily range): BP systolic 115–163; BP diastolic 59–97; PULSE 91–122; RESP 22–36; TEMP 37.1–38.4; O2SAT 91–97; BMI 28.3
--- NOTE | 2021-09-20 16:25 | DI.RAD.S_ITS ---
PROCEDURE: XR CHEST 1V INDICATIONS: suspected sepsis TECHNIQUE: One view of the chest was acquired. COMPARISON: None. FINDINGS: Surgical changes and devices: None. Lungs and pleura: Minimal patchy bilateral interstitial infiltrates are seen. No pleural effusions or pneumothorax. Mediastinum: Mediastinal contours appear normal. Heart size is normal. Atherosclerotic calcification of the aortic arch is noted. Bones and chest wall: No suspicious bony lesions. Age-appropriate bony degenerative changes are seen. Overlying soft tissues appear unremarkable. IMPRESSION: Minimal patchy bilateral interstitial infiltrates are seen, which are consistent with the history given by the patient prior COVID pneumonia. Dictated by: Lb Bethea M.D. on 09/20/2021 at 16:21 Approved by: Lb Bethea M.D. on 09/20/2021 at 16:22
--- NOTE | 2021-09-20 16:52 | ED.GENADULT ---
HPI - General Adult <Maida Silveira MD - Last Filed: 09/22/21 07:32> General Chief complaint: Fever Stated complaint: Sick fever, headaches, Time Seen by Provider: 09/20/21 16:32 Source: patient Mode of arrival: Family Vehicle History of Present Illness HPI narrative: 60-year-old woman with with no significant medical history presents with fever cough a sense that she is hallucinating feeling weaker and concerned that she is getting worse. She notes that she had COVID in early July and feels that she has never completely gotten better. She also has a cystocele and occasional will have blood in her urine 4 days ago began having bleeding, urgency and dysuria. She describes no abdominal pain or flank pain. She has had intermittent headaches, confusion has lost her taste and smell. Complains of mild stomach upset but no overt vomiting, diarrhea or constipation. She has not been having any palpitations. She does feel that she has some cognitive deficits and reports ?almost feeling like and hallucinating? and being significantly fatigued. Related Data Home Medications Medication Instructions Recorded Confirmed bupropion HCl 150 mg 24 hr tablet, 150 mg PO DAILY 09/21/21 09/21/21 extended release latanoprost 0.005 % eye drops 1 drp EYE-BOTH DAILY 09/21/21 09/21/21 trazodone 100 mg tablet 100 mg BEDTIME 09/21/21 09/21/21 Allergies Allergy/AdvReac Type Severity Reaction Status Date / Time Sulfa (Sulfonamide Allergy Intermediate Rash Verified 06/16/19 09:57 Antibiotics) [SULFA (SULFONAMIDE ANTIBIOTICS)] Review of Systems <Maida Silveira MD - Last Filed: 09/22/21 07:32> Review of Systems Narrative: Remainder of complete review of systems is otherwise unremarkable except for that included in the HPI. Patient History <Maida Silveira MD - Last Filed: 09/22/21 07:32> Medical History (Updated 09/20/21 @ 23:00 by CASEY Pearl) Arthritis of knee COVID-19 Depression Healthy adult History of COVID-19 Stress incontinence Surgical History (Updated 09/20/21 @ 23:00 by CASEY Pearl) H/O colonoscopy H/O vein stripping History of vaginal hysterectomy Hx of hysterectomy Family History (Updated 09/20/21 @ 23:14 by CASEY Pearl) Mother Dementia Father Alive and well Family/Other Liver cancer Social History household members: none Smoking Status: Former smoker Smoking Status: Former smoker alcohol intake frequency: a few times a month Substance Use Type: does not use Exam <Maida Silveira MD - Last Filed: 09/22/21 07:32> Narrative Exam Narrative: General: emotionally distraught and appears to not feel well but not overtly toxic. She is ableto give a complete and coherent history. HEENT: Moist mucous membranes, normal sclera with reactive pupils, Neck: No JVD, supple Respiratory: Lungs are clear to auscultation, no wheezing no rales no rhonchi. Full and symmetrical air movement Cardiac: Tachycardic with otherwise Regular rate and rhythm no murmurs no bruits Abdomen: Soft, nontender, good bowel tones, no flank pain Skin: Warm and dry, no rashes Neurologic: Globally weak but Grossly neurologically intact with no obvious asymmetries or abnormalities Extremities: No trauma, well perfused Psych: Cooperative, appropriate insight and affect Initial Vital Signs Initial Vital Signs: Vital Signs Temperature 101.1 F H 09/20/21 16:20 Pulse Rate 122 H 09/20/21 16:20 Respiratory Rate 25 H 09/20/21 16:20 Blood Pressure 163/82 H 09/20/21 16:20 Pulse Oximetry 96 09/20/21 16:20 <Tati Pate DO - Last Filed: 09/21/21 04:19> Initial Vital Signs Initial Vital Signs: Vital Signs Temperature 101.1 F H 09/20/21 16:20 Pulse Rate 122 H 09/20/21 16:20 Respiratory Rate 25 H 09/20/21 16:20 Blood Pressure 163/82 H 09/20/21 16:20 Pulse Oximetry 96 09/20/21 16:20 Course <Maida Silveira MD - Last Filed: 09/22/21 07:32> Orders Ordered: Acetaminophen (Acetaminophen 325 Mg Tablet) 650 mg PO Q6HR PRN PRN Reason: Fever/Mild Pain (1-3) Last Admin: 09/21/21 23:25 Dose: 650 mg Documented by: Admin: 09/21/21 16:17 Dose: 650 mg Documented by: Admin: 09/21/21 09:41 Dose: 650 mg Documented by: Admin: 09/21/21 03:09 Dose: 650 mg Documented by: MANOHAR Benzonatate (Benzonatate 100 Mg Capsule) 200 mg PO TID [facility] Stop: 10/01/21 09:01 Last Admin: 09/21/21 20:38 Dose: 200 mg Documented by: Admin: 09/21/21 16:14 Dose: 200 mg Documented by: TAVO Bupropion HCl (Bupropion Xl 150 Mg Tab) 150 mg PO DAILY [facility] Last Admin: 09/21/21 09:27 Dose: 150 mg Documented by: JACKIE Enoxaparin Sodium (Enoxaparin 40 Mg/0.4 Ml Syringe) 40 mg SUBCUT DAILY [facility] Last Admin: 09/21/21 09:27 Dose: 40 mg Documented by: JACKIE Sodium Chloride (Normal Saline 0.9%) 1,000 mls @ 50 mls/hr IV CONT [facility] Last Admin: 09/21/21 21:44 Dose: 50 mls/hr Documented by: Infusion: 09/21/21 21:38 Dose: 50 mls/hr Documented by: Infusion: 09/21/21 17:23 Dose: 50 mls/hr Documented by: Admin: 09/21/21 09:30 Dose: 100 mls/hr Documented by: Infusion: 09/21/21 09:00 Dose: 100 mls/hr Documented by: Admin: 09/20/21 23:00 Dose: 100 mls/hr Documented by: MANOHAR Ceftriaxone Sodium 1,000 mg/ (Sodium Chloride) 100 mls @ 200 mls/hr IV Q24H [facility] Stop: 09/25/21 00:29 Last Admin: 09/21/21 23:26 Dose: 200 mls/hr Documented by: Infusion: 09/21/21 00:37 Dose: 0 mls/hr Documented by: Admin: 09/20/21 23:51 Dose: 200 mls/hr Documented by: MANOHAR Lactobacillus Acidophilus (Lactobacillus Acidophilus Tablet) 1 each PO TIDWM [facility] Latanoprost (Latanoprost 0.005% Ophth 2.5 Ml) 1 drops EYE-BOTH DAILY [facility] Last Admin: 09/21/21 09:27 Dose: 1 drops Documented by: JACKIE Naloxone HCl (Naloxone 0.4 Mg/Ml Vial) 0.2 mg IV Q2MIN PRN PRN Reason: Opiate Reversal Ondansetron HCl (Ondansetron 4 Mg/2 Ml Inj) 4 mg IV Q8HR PRN PRN Reason: Nausea And Vomiting Last Admin: 09/21/21 23:30 Dose: 4 mg Documented by: Admin: 09/21/21 04:10 Dose: 4 mg Documented by: TOMASZ Trazodone HCl (Trazodone 100 Mg Tablet) 100 mg PO BEDTIME [facility] Last Admin: 09/21/21 20:38 Dose: 100 mg Documented by: Admin: 09/21/21 00:37 Dose: 100 mg Documented by: MANOHAR Discontinued Medications Acetaminophen (Acetaminophen 325 Mg Tablet) 975 mg PO NOW ONE Stop: 09/20/21 17:51 Last Admin: 09/20/21 18:24 Dose: 975 mg Documented by: EDUARDO Sodium Chloride (Normal Saline 0.9%) 1,000 mls @ 1,000 mls/hr IV BOLUS ONE Stop: 09/20/21 17:24 Last Infusion: 09/20/21 18:03 Dose: 0 mls/hr Documented by: Admin: 09/20/21 17:01 Dose: 1,000 mls/hr Documented by: EDUARDO Sodium Chloride (Normal Saline 0.9%) 1,000 mls @ 1,000 mls/hr IV BOLUS ONE Stop: 09/20/21 18:49 Last Infusion: 09/20/21 20:36 Dose: 0 mls/hr Documented by: Admin: 09/20/21 18:25 Dose: 1,000 mls/hr Documented by: EDUARDO Piperacillin Sod/Tazobactam (Sod 4.5 gm/ Sodium Chloride) 100 mls @ 200 mls/hr IV NOW ONE Stop: 09/20/21 17:51 Last Infusion: 09/20/21 19:02 Dose: 0 mls/hr Documented by: Admin: 09/20/21 18:24 Dose: 200 mls/hr Documented by: EDUARDO Potassium Chloride (Potassium Chloride 20 Meq Tab) 40 meq PO NOW ONE Stop: 09/20/21 20:08 Last Admin: 09/20/21 20:35 Dose: 40 meq Documented by: VINAY Potassium Chloride (Potassium Chloride 20 Meq Tab) 40 meq PO Q6H [facility] Stop: 09/21/21 15:16 Last Admin: 09/21/21 14:45 Dose: 40 meq Documented by: Admin: 09/21/21 09:30 Dose: 40 meq Documented by: JACKIE Trazodone HCl (Trazodone 100 Mg Tablet) 100 mg PO BEDTIME [facility] Vital Signs Vital signs: Vital Signs - 8 hr 09/20/21 20:30 09/20/21 21:00 09/20/21 21:01 Pulse Rate 99 H 93 H 91 H Respiratory Rate 25 H 27 H 29 H Blood Pressure 125/64 143/76 H Pulse Oximetry 93 91 91 09/20/21 21:30 Pulse Rate 96 H Respiratory Rate 36 H Blood Pressure 137/97 H Pulse Oximetry 92 <Tati Pate, - Last Filed: 09/21/21 04:19> Orders Ordered: Acetaminophen (Acetaminophen 325 Mg Tablet) 650 mg PO Q6HR PRN PRN Reason: Fever/Mild Pain (1-3) Last Admin: 09/21/21 23:25 Dose: 650 mg Documented by: Admin: 09/21/21 16:17 Dose: 650 mg Documented by: Admin: 09/21/21 09:41 Dose: 650 mg Documented by: Admin: 09/21/21 03:09 Dose: 650 mg Documented by: MANOHAR Benzonatate (Benzonatate 100 Mg Capsule) 200 mg PO TID [facility] Stop: 10/01/21 09:01 Last Admin: 09/21/21 20:38 Dose: 200 mg Documented by: Admin: 09/21/21 16:14 Dose: 200 mg Documented by: TAVO Bupropion HCl (Bupropion Xl 150 Mg Tab) 150 mg PO DAILY [facility] Last Admin: 09/21/21 09:27 Dose: 150 mg Documented by: JACKIE Enoxaparin Sodium (Enoxaparin 40 Mg/0.4 Ml Syringe) 40 mg SUBCUT DAILY [facility] Last Admin: 09/21/21 09:27 Dose: 40 mg Documented by: JACKIE Sodium Chloride (Normal Saline 0.9%) 1,000 mls @ 50 mls/hr IV CONT [facility] Last Admin: 09/21/21 21:44 Dose: 50 mls/hr Documented by: Infusion: 09/21/21 21:38 Dose: 50 mls/hr Documented by: Infusion: 09/21/21 17:23 Dose: 50 mls/hr Documented by: Admin: 09/21/21 09:30 Dose: 100 mls/hr Documented by: Infusion: 09/21/21 09:00 Dose: 100 mls/hr Documented by: Admin: 09/20/21 23:00 Dose: 100 mls/hr Documented by: MANOHAR Ceftriaxone Sodium 1,000 mg/ (Sodium Chloride) 100 mls @ 200 mls/hr IV Q24H [facility] Stop: 09/25/21 00:29 Last Admin: 09/21/21 23:26 Dose: 200 mls/hr Documented by: Infusion: 09/21/21 00:37 Dose: 0 mls/hr Documented by: Admin: 09/20/21 23:51 Dose: 200 mls/hr Documented by: MANOHAR Lactobacillus Acidophilus (Lactobacillus Acidophilus Tablet) 1 each PO TIDWM [facility] Latanoprost (Latanoprost 0.005% Ophth 2.5 Ml) 1 drops EYE-BOTH DAILY [facility] Last Admin: 09/21/21 09:27 Dose: 1 drops Documented by: JACKIE Naloxone HCl (Naloxone 0.4 Mg/Ml Vial) 0.2 mg IV Q2MIN PRN PRN Reason: Opiate Reversal Ondansetron HCl (Ondansetron 4 Mg/2 Ml Inj) 4 mg IV Q8HR PRN PRN Reason: Nausea And Vomiting Last Admin: 09/21/21 23:30 Dose: 4 mg Documented by: Admin: 09/21/21 04:10 Dose: 4 mg Documented by: TOMASZ Trazodone HCl (Trazodone 100 Mg Tablet) 100 mg PO BEDTIME [facility] Last Admin: 09/21/21 20:38 Dose: 100 mg Documented by: Admin: 09/21/21 00:37 Dose: 100 mg Documented by: MANOHAR Discontinued Medications Acetaminophen (Acetaminophen 325 Mg Tablet) 975 mg PO NOW ONE Stop: 09/20/21 17:51 Last Admin: 09/20/21 18:24 Dose: 975 mg Documented by: EDUARDO Sodium Chloride (Normal Saline 0.9%) 1,000 mls @ 1,000 mls/hr IV BOLUS ONE Stop: 09/20/21 17:24 Last Infusion: 09/20/21 18:03 Dose: 0 mls/hr Documented by: Admin: 09/20/21 17:01 Dose: 1,000 mls/hr Documented by: EDUARDO Sodium Chloride (Normal Saline 0.9%) 1,000 mls @ 1,000 mls/hr IV BOLUS ONE Stop: 09/20/21 18:49 Last Infusion: 09/20/21 20:36 Dose: 0 mls/hr Documented by: Admin: 09/20/21 18:25 Dose: 1,000 mls/hr Documented by: EDUARDO Piperacillin Sod/Tazobactam (Sod 4.5 gm/ Sodium Chloride) 100 mls @ 200 mls/hr IV NOW ONE Stop: 09/20/21 17:51 Last Infusion: 09/20/21 19:02 Dose: 0 mls/hr Documented by: Admin: 09/20/21 18:24 Dose: 200 mls/hr Documented by: EDUARDO Potassium Chloride (Potassium Chloride 20 Meq Tab) 40 meq PO NOW ONE Stop: 09/20/21 20:08 Last Admin: 09/20/21 20:35 Dose: 40 meq Documented by: VINAY Potassium Chloride (Potassium Chloride 20 Meq Tab) 40 meq PO Q6H [facility] Stop: 09/21/21 15:16 Last Admin: 09/21/21 14:45 Dose: 40 meq Documented by: Admin: 09/21/21 09:30 Dose: 40 meq Documented by: JACKIE Trazodone HCl (Trazodone 100 Mg Tablet) 100 mg PO BEDTIME [facility] Reevaluation(s) Reevaluation #1: This is a 60-year-old female seen independently evaluated by myself. Patient is feeling improved. She did tolerate some oral potassium. Her CT imaging reviewed. She is nontender on examination but was having some right upper quadrant discomfort earlier in the week so ultrasound was ordered which shows cholelithiasis but no signs of cholecystitis and patient is nontender on examination with no ductal dilation. Urine shows bacteria but no nitrites or leukocyte esterase. Patient was covered with Zosyn but plan for observation while cultures are pending overnight as there is not a clearly indicated source. Patient is amenable to observation. Time: 20:09 Consultations Consultation #1: [employer] Robina Trujillo, hospitalist accepts for admission. Plan for observation for possible UTI sepsis fall the patient appears have cholelithiasis. But is nontender on exam in seems less likely source of infection at this time but seems appropriate to be observed to clarify with patient's lab abnormalities. Vital Signs Vital signs: Vital Signs - 8 hr 09/20/21 20:30 09/20/21 21:00 09/20/21 21:01 Pulse Rate 99 H 93 H 91 H Respiratory Rate 25 H 27 H 29 H Blood Pressure 125/64 143/76 H Pulse Oximetry 93 91 91 09/20/21 21:30 Pulse Rate 96 H Respiratory Rate 36 H Blood Pressure 137/97 H Pulse Oximetry 92 Medical Decision Making <Maida Silveira MD - Last Filed: 09/22/21 07:32> Lab Data Result diagrams: 09/22/21 05:00 09/22/21 05:00 Labs: Lab Results 09/20/21 09/20/21 09/20/21 Range/Units 16:26 16:45 16:45 WBC 12.2 H (4.5-11.0) X10^3/uL RBC 4.61 (4.0-5.2) X10^6/uL Hgb 13.8 (12.0-16.0) g/dL Hct 40.0 (36-46) % MCV 86.6 (80-100) fL MCH 30.0 (26-34) PG MCHC 34.6 (30-36) % RDW 13.1 (11.6-14.8) % Plt Count 248 (150-400) X10^3/uL Neut % (Auto) 83.5 H (50-75) % Lymph % (Auto) 5.1 L (25-40) % [place] % (Auto) 3.7 (3-14) % Eos % (Auto) 7.4 H (2-4) % Baso % (Auto) 0.3 (0-2) % Neut # (Auto) 97860 H (7473-3669) /uL Lymph # (Auto) 600 L (3860-7156) /uL [place] # (Auto) 500 (0-900) /uL Eos # (Auto) 900 H (0-450) /uL Baso # (Auto) 0 (0-100) /uL Sodium 133 L (137-145) mmol/L Potassium 3.0 L (3.4-5.1) mmol/L Chloride 99 (98-107) mmol/L Carbon Dioxide 27 (22-32) mmol/L BUN 13 (7-17) mg/dL Creatinine 0.64 (0.52-1.04) mg/dL Estimated GFR > 60.0 (>60) mL/min BUN/Creatinine Ratio 20.3 (6-22) Glucose 133 H (80-110) mg/dL Hemoglobin A1c (4.0-6.0) % Lactate (0.7-2.1) mmol/L Calcium 8.3 L (8.4-10.2) mg/dL Total Bilirubin 4.5 H (0.2-1.3) mg/dL AST 99 H (14-36) IU/L ALT 111 H (<35) IU/L Alkaline Phosphatase 163 H (38-126) U/L Total Protein 6.7 (6.3-8.2) g/dL Albumin 3.3 L (3.5-5.0) g/dL Globulin 3.4 (1.7-4.1) g/dL Albumin/Globulin Ratio 1.0 (1.0-2.8) Lipase 27 (23-300) U/L Procalcitonin 0.42 (<0.5) ng/mL Urine Color Urine Appearance Urine pH (4.5-8.0) Ur Specific [place] (1.000-1.035) Urine Protein (Negative) Urine Glucose (UA) (Negative) g/dL Urine Ketones (NEGATIVE) Urine Occult Blood (Negative) Urine Nitrate (Negative) Urine Bilirubin (NEGATIVE) Ur Bilirubin Confirm (Negative) Urine Urobilinogen (0.2) E.U./dL Ur Leukocyte Esterase (NEGATIVE) Urine RBC (0-5/HPF) Urine WBC (0-5/HPF) Ur Squamous Epith Cells (0-5/HPF) Urine Bacteria (None) Urine Mucus (Negative) Ur Culture Indicated? Chlamy pneumoniae PCR Not detected (Not Detect) Adenovirus (PCR) Not detected (Not Detect) B. pertussis DNA (PCR) Not detected (Not Detecte) B.parapertussis DNA PCR Not detected (Not Detecte) Coronavirus OC43 (PCR) Not detected (Not Detect) Coronavirus HKU1 (PCR) Not detected (Not Detect) Coronavirus 229E (PCR) Not detected (Not Detect) SARS-CoV-2 (PCR) Not detected (Not Detecte) Coronavirus NL63 (PCR) Not detected (Not Detect) Human Metapneumovir PCR Not detected (Not Detect) Influenza Type A (PCR) Not detected (Not Detect) Influenza Type B (PCR) Not detected (Not Detect) M. pneumoniae (PCR) Not detected (Not Detect) Parainfluenza 1 (PCR) Not detected (Not Detect) Parainfluenza 2 (PCR) Not detected (Not Detect) Parainfluenza 3 (PCR) Not detected (Not Detect) Parainfluenza 4 (PCR) Not detected (Not Detect) RSV (PCR) Not detected (Not Detect) Entero/Rhino (PCR) Not detected (Not Detect) 09/20/21 09/20/21 09/20/21 Range/Units 16:45 16:45 18:40 WBC (4.5-11.0) X10^3/uL RBC (4.0-5.2) X10^6/uL Hgb (12.0-16.0) g/dL Hct (36-46) % MCV (80-100) fL MCH (26-34) PG MCHC (30-36) % RDW (11.6-14.8) % Plt Count (150-400) X10^3/uL Neut % (Auto) (50-75) % Lymph % (Auto) (25-40) % [place] % (Auto) (3-14) % Eos % (Auto) (2-4) % Baso % (Auto) (0-2) % Neut # (Auto) (5165-0927) /uL Lymph # (Auto) (5626-0768) /uL [place] # (Auto) (0-900) /uL Eos # (Auto) (0-450) /uL Baso # (Auto) (0-100) /uL Sodium (137-145) mmol/L Potassium (3.4-5.1) mmol/L Chloride (98-107) mmol/L Carbon Dioxide (22-32) mmol/L BUN (7-17) mg/dL Creatinine (0.52-1.04) mg/dL Estimated GFR (>60) mL/min BUN/Creatinine Ratio (6-22) Glucose (80-110) mg/dL Hemoglobin A1c 5.1 (4.0-6.0) % Lactate 1.4 (0.7-2.1) mmol/L Calcium (8.4-10.2) mg/dL Total Bilirubin (0.2-1.3) mg/dL AST (14-36) IU/L ALT (<35) IU/L Alkaline Phosphatase (38-126) U/L Total Protein (6.3-8.2) g/dL Albumin (3.5-5.0) g/dL Globulin (1.7-4.1) g/dL Albumin/Globulin Ratio (1.0-2.8) Lipase (23-300) U/L Procalcitonin (<0.5) ng/mL Urine Color [place] Urine Appearance Clear Urine pH 6.5 (4.5-8.0) Ur Specific [place] <=1.005 (1.000-1.035) Urine Protein 2+ H (Negative) Urine Glucose (UA) Trace H (Negative) g/dL Urine Ketones 1+ H (NEGATIVE) Urine Occult Blood Trace-lysed (Negative) Urine Nitrate Negative (Negative) Urine Bilirubin 2+ H (NEGATIVE) Ur Bilirubin Confirm Negative (Negative) Urine Urobilinogen 2.0 H (0.2) E.U./dL Ur Leukocyte Esterase Negative (NEGATIVE) Urine RBC 1-5/hpf (0-5/HPF) Urine WBC 1-5/hpf (0-5/HPF) Ur Squamous Epith Cells 1-5 /hpf (0-5/HPF) Urine Bacteria Moderate (10-30) H (None) Urine Mucus 1+ H (Negative) Ur Culture Indicated? Cult not indicated Chlamy pneumoniae PCR (Not Detect) Adenovirus (PCR) (Not Detect) B. pertussis DNA (PCR) (Not Detecte) B.parapertussis DNA PCR (Not Detecte) Coronavirus OC43 (PCR) (Not Detect) Coronavirus HKU1 (PCR) (Not Detect) Coronavirus 229E (PCR) (Not Detect) SARS-CoV-2 (PCR) (Not Detecte) Coronavirus NL63 (PCR) (Not Detect) Human Metapneumovir PCR (Not Detect) Influenza Type A (PCR) (Not Detect) Influenza Type B (PCR) (Not Detect) M. pneumoniae (PCR) (Not Detect) Parainfluenza 1 (PCR) (Not Detect) Parainfluenza 2 (PCR) (Not Detect) Parainfluenza 3 (PCR) (Not Detect) Parainfluenza 4 (PCR) (Not Detect) RSV (PCR) (Not Detect) Entero/Rhino (PCR) (Not Detect) Imaging Data Chest x-ray: Radiologist's Impression: FINDINGS:? ? Surgical changes and devices:? None.? ? Lungs and pleura:? Minimal patchy bilateral interstitial infiltrates are seen.? No pleural effusions or pneumothorax.? ? Mediastinum:? Mediastinal contours appear normal.? Heart size is normal.? Atherosclerotic calcification of the aortic arch is noted.? ? Bones and chest wall:? No suspicious bony lesions.? Age-appropriate bony degenerative changes are seen. ? Overlying soft tissues appear unremarkable.? IMPRESSION:? Minimal patchy bilateral interstitial infiltrates are seen, which are consistent with the history given by the patient prior COVID pneumonia. ? ? Dictated by: Lb Bethea M.D. on 09/20/2021 at 16:21 ? ? [facility] Narrative Medical decision making narrative: 60-year-old woman with fever, cough, chills, dysuria. She is noted to be hypokalemic with potassium of 3. Transaminases are elevated at 99 for AST, 111 for ALT, bilirubin is elevated at 4.5 and alkaline phosphatase is elevated at 163. Full respiratory panel on coding COVID is unremarkable Urine is currently pending. Will need a CT scan in light of the liver abnormalities. She does not have specific right upper quadrant tenderness. Will begin fluid resuscitation as well as Zosyn to cover both urinary source as well as possible cholecystitis/choledocholithiasis or ascending cholangitis. Care will be turned over to Dr. Pate at change of shift <Tati Pate, DO - Last Filed: 09/21/21 04:19> Lab Data Labs: Lab Results 09/20/21 09/20/21 09/20/21 Range/Units 16:26 16:45 16:45 WBC 12.2 H (4.5-11.0) X10^3/uL RBC 4.61 (4.0-5.2) X10^6/uL Hgb 13.8 (12.0-16.0) g/dL Hct 40.0 (36-46) % MCV 86.6 (80-100) fL MCH 30.0 (26-34) PG MCHC 34.6 (30-36) % RDW 13.1 (11.6-14.8) % Plt Count 248 (150-400) X10^3/uL Neut % (Auto) 83.5 H (50-75) % Lymph % (Auto) 5.1 L (25-40) % [place] % (Auto) 3.7 (3-14) % Eos % (Auto) 7.4 H (2-4) % Baso % (Auto) 0.3 (0-2) % Neut # (Auto) 84021 H (7741-3718) /uL Lymph # (Auto) 600 L (7150-3697) /uL [place] # (Auto) 500 (0-900) /uL Eos # (Auto) 900 H (0-450) /uL Baso # (Auto) 0 (0-100) /uL Sodium 133 L (137-145) mmol/L Potassium 3.0 L (3.4-5.1) mmol/L Chloride 99 (98-107) mmol/L Carbon Dioxide 27 (22-32) mmol/L BUN 13 (7-17) mg/dL Creatinine 0.64 (0.52-1.04) mg/dL Estimated GFR > 60.0 (>60) mL/min BUN/Creatinine Ratio 20.3 (6-22) Glucose 133 H (80-110) mg/dL Hemoglobin A1c (4.0-6.0) % Lactate (0.7-2.1) mmol/L Calcium 8.3 L (8.4-10.2) mg/dL Total Bilirubin 4.5 H (0.2-1.3) mg/dL AST 99 H (14-36) IU/L ALT 111 H (<35) IU/L Alkaline Phosphatase 163 H (38-126) U/L Total Protein 6.7 (6.3-8.2) g/dL Albumin 3.3 L (3.5-5.0) g/dL Globulin 3.4 (1.7-4.1) g/dL Albumin/Globulin Ratio 1.0 (1.0-2.8) Lipase 27 (23-300) U/L Procalcitonin 0.42 (<0.5) ng/mL Urine Color Urine Appearance Urine pH (4.5-8.0) Ur Specific [place] (1.000-1.035) Urine Protein (Negative) Urine Glucose (UA) (Negative) g/dL Urine Ketones (NEGATIVE) Urine Occult Blood (Negative) Urine Nitrate (Negative) Urine Bilirubin (NEGATIVE) Ur Bilirubin Confirm (Negative) Urine Urobilinogen (0.2) E.U./dL Ur Leukocyte Esterase (NEGATIVE) Urine RBC (0-5/HPF) Urine WBC (0-5/HPF) Ur Squamous Epith Cells (0-5/HPF) Urine Bacteria (None) Urine Mucus (Negative) Ur Culture Indicated? Chlamy pneumoniae PCR Not detected (Not Detect) Adenovirus (PCR) Not detected (Not Detect) B. pertussis DNA (PCR) Not detected (Not Detecte) B.parapertussis DNA PCR Not detected (Not Detecte) Coronavirus OC43 (PCR) Not detected (Not Detect) Coronavirus HKU1 (PCR) Not detected (Not Detect) Coronavirus 229E (PCR) Not detected (Not Detect) SARS-CoV-2 (PCR) Not detected (Not Detecte) Coronavirus NL63 (PCR) Not detected (Not Detect) Human Metapneumovir PCR Not detected (Not Detect) Influenza Type A (PCR) Not detected (Not Detect) Influenza Type B (PCR) Not detected (Not Detect) M. pneumoniae (PCR) Not detected (Not Detect) Parainfluenza 1 (PCR) Not detected (Not Detect) Parainfluenza 2 (PCR) Not detected (Not Detect) Parainfluenza 3 (PCR) Not detected (Not Detect) Parainfluenza 4 (PCR) Not detected (Not Detect) RSV (PCR) Not detected (Not Detect) Entero/Rhino (PCR) Not detected (Not Detect) 09/20/21 09/20/21 09/20/21 Range/Units 16:45 16:45 18:40 WBC (4.5-11.0) X10^3/uL RBC (4.0-5.2) X10^6/uL Hgb (12.0-16.0) g/dL Hct (36-46) % MCV (80-100) fL MCH (26-34) PG MCHC (30-36) % RDW (11.6-14.8) % Plt Count (150-400) X10^3/uL Neut % (Auto) (50-75) % Lymph % (Auto) (25-40) % [place] % (Auto) (3-14) % Eos % (Auto) (2-4) % Baso % (Auto) (0-2) % Neut # (Auto) (8942-0841) /uL Lymph # (Auto) (1257-1996) /uL [place] # (Auto) (0-900) /uL Eos # (Auto) (0-450) /uL Baso # (Auto) (0-100) /uL Sodium (137-145) mmol/L Potassium (3.4-5.1) mmol/L Chloride (98-107) mmol/L Carbon Dioxide (22-32) mmol/L BUN (7-17) mg/dL Creatinine (0.52-1.04) mg/dL Estimated GFR (>60) mL/min BUN/Creatinine Ratio (6-22) Glucose (80-110) mg/dL Hemoglobin A1c 5.1 (4.0-6.0) % Lactate 1.4 (0.7-2.1) mmol/L Calcium (8.4-10.2) mg/dL Total Bilirubin (0.2-1.3) mg/dL AST (14-36) IU/L ALT (<35) IU/L Alkaline Phosphatase (38-126) U/L Total Protein (6.3-8.2) g/dL Albumin (3.5-5.0) g/dL Globulin (1.7-4.1) g/dL Albumin/Globulin Ratio (1.0-2.8) Lipase (23-300) U/L Procalcitonin (<0.5) ng/mL Urine Color [place] Urine Appearance Clear Urine pH 6.5 (4.5-8.0) Ur Specific [place] <=1.005 (1.000-1.035) Urine Protein 2+ H (Negative) Urine Glucose (UA) Trace H (Negative) g/dL Urine Ketones 1+ H (NEGATIVE) Urine Occult Blood Trace-lysed (Negative) Urine Nitrate Negative (Negative) Urine Bilirubin 2+ H (NEGATIVE) Ur Bilirubin Confirm Negative (Negative) Urine Urobilinogen 2.0 H (0.2) E.U./dL Ur Leukocyte Esterase Negative (NEGATIVE) Urine RBC 1-5/hpf (0-5/HPF) Urine WBC 1-5/hpf (0-5/HPF) Ur Squamous Epith Cells 1-5 /hpf (0-5/HPF) Urine Bacteria Moderate (10-30) H (None) Urine Mucus 1+ H (Negative) Ur Culture Indicated? Cult not indicated Chlamy pneumoniae PCR (Not Detect) Adenovirus (PCR) (Not Detect) B. pertussis DNA (PCR) (Not Detecte) B.parapertussis DNA PCR (Not Detecte) Coronavirus OC43 (PCR) (Not Detect) Coronavirus HKU1 (PCR) (Not Detect) Coronavirus 229E (PCR) (Not Detect) SARS-CoV-2 (PCR) (Not Detecte) Coronavirus NL63 (PCR) (Not Detect) Human Metapneumovir PCR (Not Detect) Influenza Type A (PCR) (Not Detect) Influenza Type B (PCR) (Not Detect) M. pneumoniae (PCR) (Not Detect) Parainfluenza 1 (PCR) (Not Detect) Parainfluenza 2 (PCR) (Not Detect) Parainfluenza 3 (PCR) (Not Detect) Parainfluenza 4 (PCR) (Not Detect) RSV (PCR) (Not Detect) Entero/Rhino (PCR) (Not Detect) Imaging Data CT scan - abdomen/pelvis: Radiologist's Impression: Yulisa Mackey??60??F??1960 ? Allergy/Adv: Sulfa (Sulfonamide Antibiotics) (More??) Close Abdomen/Pelvis CT (Signed) Balaji Barone - 09/20/21 Chest X-Ray (Signed) Lb Bethea - 09/20/21 Mammogram Diagnostic (Signed) Jannie Mcpherson - 09/07/19 Foot X-Ray (Signed) Jose Ordoñez - 06/16/19 Breast MRI (Signed) Jose Ordoñez - 01/17/19 Mammogram Diagnostic (Addendum) Juan Pop - 11/23/18 Breast Ultrasound (Signed) Juan Pop - 11/23/18 Mammogram, Additional Views (Signed) Jose Ordoñez - 05/17/18 Breast Ultrasound (Signed) Jose Ordoñez - 05/17/18 Telemetry Strips 05/12/18 Mammogram Screening (Signed) Jannie Mcpherson - 04/27/18 [place] [address] CT Scan Report Signed Patient: Yulisa Mackey MR#: [id number] : 1960 Acct:[id number] Age/Sex: 60 / F Date of Service: 09/20/21 Loc: Accession Number: [id number] ?? Procedure: CT abdomen pelvis w con Ordering Provider: Maida Silveira MD PROCEDURE:? CT ABDOMEN PELVIS W CON ? INDICATIONS:? fever, elevated bili/ast/alt/alk phos ? TECHNIQUE:? After the administration of intravenous contrast, axial sections acquired from the lung bases to the pubic symphysis.? Coronal and sagittal reformats were performed.? For radiation dose reduction, the following was used:? automated exposure control, adjustment of mA and/or kV according to patient size.? ? COMPARISON:? None. ? FINDINGS:? Image quality:? Excellent.? ? Lung bases:? Fat containing right posterior hemidiaphragmatic hernia measuring 16 mm diameter. Heart:? No significant findings. ? ABDOMEN: Liver:? Unremarkable.? ? Gallbladder:? Is within normal limits? ? Biliary ducts:? Unremarkable.? ? Pancreas:? Unremarkable.? ? Spleen:? Unremarkable.? ? Adrenal Glands:? Unremarkable.? ? Kidneys and Ureters:? Unremarkable.? ? ? Stomach and Bowel:? Stomach, small bowel loops, and colon are unremarkable.? Normal appendix. Peritoneum:? No abnormal intraperitoneal fluid.? No free air.? ? Ventral Wall: ? No hernias.? Abdominal Nodes:? No retroperitoneal or mesenteric adenopathy by size criteria.? Vessels:? Aorta and inferior vena cava are normal in size.? ? PELVIS: Pelvic Organs:? Unremarkable.? ? Bladder:? Unremarkable.? ? Pelvic Nodes: No enlarged lymph nodes.? Miscellaneous: No hernias are seen. ? ? ? Bones:? Unremarkable.? IMPRESSION:? 1. No acute process. 2. Normal appendix.? ? ? Dictated by: Balaji Barone M.D. on 09/20/2021 at 18:22 ? ? Approved by: Balaji Barone M.D. on 09/20/2021 at 18:24?? US - abdomen: Radiologist's Impression: [address] [address] Ultrasound Report Signed Patient: Yulisa Mackey MR#: [id number] : 1960 Acct:[id number] Age/Sex: 60 / F Date of Service: 09/20/21 Loc: ED Accession Number: [id number] ?? Procedure: US abdomen limited Ordering Provider: Tati Pate D.O. PROCEDURE: US ABDOMEN LIMITED ? INDICATIONS:? PAIN; N/V ? TECHNIQUE:? Real-time focused scanning was performed of the abdomen, with image documentation.? ? COMPARISON:? [facility], CT, CT ABDOMEN PELVIS W CON, 09/20/2021, 18:07. ? FINDINGS:? ? The liver is mildly enlarged.? No focal hepatic lesions identified. ? There is a small non impacted gallstone measuring up to 0.4 cm.? No gallbladder wall thickening or pericholecystic fluid. ? No intra or extrahepatic biliary ductal dilatation.? The visualized common bile duct measures up to 0.5 cm. ? The visualized pancreas appears sonographically unremarkable. ? IMPRESSION:? ? 1. Cholelithiasis without evidence of cholecystitis. ? 2. No biliary ductal dilatation.? ? Dictated by: Jose Ordoñez M.D. on 09/20/2021 at 21:23 ? ? Approved by: Jose Ordoñez M.D. on 09/20/2021 at 21:28? [facility] Narrative Medical decision making narrative: 60-year-old woman with fever, cough, chills, dysuria. She is noted to be hypokalemic with potassium of 3. Transaminases are elevated at 99 for AST, 111 for ALT, bilirubin is elevated at 4.5 and alkaline phosphatase is elevated at 163. Full respiratory panel on coding COVID is unremarkable Urine is currently pending. Will need a CT scan in light of the liver abnormalities. She does not have specific right upper quadrant tenderness. Will begin fluid resuscitation as well as Zosyn to cover both urinary source as well as possible cholecystitis/choledocholithiasis or ascending cholangitis. Care will be turned over to Dr. Pate at change of shift. Patient signed out to myself. She has been febrile, tachycardic and tachypneic with improvement of all three. O2 has been appropriate here. She has a history of COVID reported suspect the changes on her x-ray or secondary to this. COVID today is unremarkable but she does have an elevated her abdominal labs. She is hypokalemic with potassium of 3. Urine was obtained shows possible infection although may be contaminated. CT abdomen does not show any acute clear changes and patient was started on Zosyn for coverage. Patient's vitals have been improving although she still mildly tachycardic her fever has resolved. Patient received 2L bolus, Tylenol and Zosyn. And potassium replacement. On re-evaluation patient feels improved but feels she would be appropriate for observation as she meets septic criteria and has not had a clearly defined source or complete resolution of her vital changes. Discharge Plan Departure Patient Disposition: Admitted as Observation Clinical Impression: UTI (urinary tract infection), Sepsis, Cholelithiasis, Hypokalemia, Elevated liver enzymes Admit Date/Time: 09/20/21 21:57 Admit Provider: Jessi Trujillo
[2021-09-20 16:56] LABS: Add Manual Diff / Slide Review NO; Basophils Absolute Auto 0 /uL (0-100); Basophils Percent Auto 0.3 % (0-2); Eosinophils Absolute Auto 900 /uL (0-450); Eosinophils Percent Auto 7.4 % (2-4); Hemoglobin 13.8 g/dL (12.0-16.0); Lymphocytes Absolute Auto 600 /uL (1100-4500); Lymphocytes Percent Auto 5.1 % (25-40); Mean Corpuscular HGB Conc 34.6 % (30-36); Mean Corpuscular Volume 86.6 fL (80-100); Monocytes Absolute Auto 500 /uL (0-900); Monocytes Percent Auto 3.7 % (3-14); Neutrophils Absolute Auto 10200 /uL (1500-7000); Neutrophils Percent Auto 83.5 % (50-75); Platelet Count 248 X10^3/uL (150-400); Red Blood Cell Count 4.61 X10^6/uL (4.0-5.2); Red Cell Distribution Width 13.1 % (11.6-14.8); White Blood Cell Count 12.2 X10^3/uL (4.5-11.0)
[2021-09-20] MEDS: SODIUM CHLORIDE 0.9% 1,000 ML 1000 ML IV ×2 (17:01→18:25)
[2021-09-20 17:11] LABS: Lactate (Lactic Acid) 1.4 mmol/L (0.7-2.1)
[2021-09-20 17:14] LABS: Alanine Aminotransferase 111 IU/L (<35); Albumin 3.3 g/dL (3.5-5.0); Alkaline Phosphatase 163 U/L (38-126); Aspartate Aminotransferase 99 IU/L (14-36); BUN Creatinine Ratio 20.3 (6-22); Bilirubin Total 4.5 mg/dL (0.2-1.3); Blood Urea Nitrogen 13 mg/dL (7-17); Calcium 8.3 mg/dL (8.4-10.2); Carbon Dioxide 27 mmol/L (22-32); Chloride 99 mmol/L (98-107); Estimated Glomerular Filt Rate > 60.0 mL/min (>60); Globulin 3.4 g/dL (1.7-4.1); Glucose 133 mg/dL (80-110); HEMOLYSIS < 15 (0-50); Lipase 27 U/L (23-300); Sodium 133 mmol/L (137-145); Total Protein 6.7 g/dL (6.3-8.2)
[2021-09-20 17:29] LABS: Adenovirus Not Detected (Not Detect); B. parapertussis Not Detected (Not Detecte); Bordetella pertussis Not Detected (Not Detecte); Chlamydophila pneumoniae Not Detected (Not Detect); Coronavirus 229E Not Detected (Not Detect); Coronavirus HKU1 Not Detected (Not Detect); Coronavirus NL 63 Not Detected (Not Detect); Coronavirus OC43 Not Detected (Not Detect); Human Metapneumovirus Not Detected (Not Detect); Human Rhinovirus/Enterovirus Not Detected (Not Detect); Influenza A Not Detected (Not Detect); Influenza B Not Detected (Not Detect); Mycoplasma pneumoniae Not Detected (Not Detect); Parainfluenza Virus 1 Not Detected (Not Detect); Parainfluenza Virus 2 Not Detected (Not Detect); Parainfluenza Virus 3 Not Detected (Not Detect); Parainfluenza Virus 4 Not Detected (Not Detect); Respiratory Syncytial Virus Not Detected (Not Detect); SARS- CoV-2 Not Detected (Not Detecte)
[2021-09-20 17:29] LABS: Procalcitonin 0.42 ng/mL (<0.5)
--- NOTE | 2021-09-20 17:50 | DI.CT.S_ITS ---
PROCEDURE: CT ABDOMEN PELVIS W CON INDICATIONS: fever, elevated bili/ast/alt/alk phos TECHNIQUE: After the administration of intravenous contrast, axial sections acquired from the lung bases to the pubic symphysis. Coronal and sagittal reformats were performed. For radiation dose reduction, the following was used: automated exposure control, adjustment of mA and/or kV according to patient size. COMPARISON: None. FINDINGS: Image quality: Excellent. Lung bases: Fat containing right posterior hemidiaphragmatic hernia measuring 16 mm diameter. Heart: No significant findings. ABDOMEN: Liver: Unremarkable. Gallbladder: Is within normal limits Biliary ducts: Unremarkable. Pancreas: Unremarkable. Spleen: Unremarkable. Adrenal Glands: Unremarkable. Kidneys and Ureters: Unremarkable. Stomach and Bowel: Stomach, small bowel loops, and colon are unremarkable. Normal appendix. Peritoneum: No abnormal intraperitoneal fluid. No free air. Ventral Wall: No hernias. Abdominal Nodes: No retroperitoneal or mesenteric adenopathy by size criteria. Vessels: Aorta and inferior vena cava are normal in size. PELVIS: Pelvic Organs: Unremarkable. Bladder: Unremarkable. Pelvic Nodes: No enlarged lymph nodes. Miscellaneous: No hernias are seen. Bones: Unremarkable. IMPRESSION: 1. No acute process. 2. Normal appendix. Dictated by: Balaji Barone M.D. on 09/20/2021 at 18:22 Approved by: Balaji Barone M.D. on 09/20/2021 at 18:24
[2021-09-20] MEDS: ACETAMINOPHEN 325 MG TABLET 975 MG PO (18:24)
[2021-09-20] MEDS: PIPERACILLIN/TAZO 4.5 GM in SODIUM CHLORIDE 0.9% 100 ML 200 ML IV (18:24)
[2021-09-20 18:48] LABS: Appearance Urine UA CLEAR; Bilirubin Urine UA 2+ (NEGATIVE); Color Urine UA ORANGE; Glucose Urine UA TRACE g/dL (Negative); Ketones Urine UA 1+ (NEGATIVE); Leukocyte Esterase Urine UA NEGATIVE (NEGATIVE); Nitrite Urine UA NEGATIVE (Negative); Occult Blood Urine UA TRACE-LYSED (Negative); Protein Urine UA 2+ (Negative); Specific Gravity Urine UA <=1.005 (1.000-1.035)
[2021-09-20 19:01] LABS: Bacteria Urine Moderate (10-30); Culture Indicated Urine Cult Not Indicated; Ictotest Urine Negative (Negative); Mucus Urine 1+ (Negative); RBC Urine 1-5/HPF (0-5/HPF); Squamous Epithelial Cell Urine 1-5 /HPF (0-5/HPF); WBC Urine 1-5/HPF (0-5/HPF); pH Urine UA 6.5 (4.5-8.0)
--- NOTE | 2021-09-20 20:14 | DI.US.S_ITS ---
PROCEDURE: US ABDOMEN LIMITED INDICATIONS: PAIN; N/V TECHNIQUE: Real-time focused scanning was performed of the abdomen, with image documentation. COMPARISON: [facility], CT, CT ABDOMEN PELVIS W CON, 09/20/2021, 18:07. FINDINGS: The liver is mildly enlarged. No focal hepatic lesions identified. There is a small non impacted gallstone measuring up to 0.4 cm. No gallbladder wall thickening or pericholecystic fluid. No intra or extrahepatic biliary ductal dilatation. The visualized common bile duct measures up to 0.5 cm. The visualized pancreas appears sonographically unremarkable. IMPRESSION: 1. Cholelithiasis without evidence of cholecystitis. 2. No biliary ductal dilatation. Dictated by: Jose Ordoñez M.D. on 09/20/2021 at 21:23 Approved by: Jose Ordoñez M.D. on 09/20/2021 at 21:28
[2021-09-20] MEDS: POTASSIUM CHLORIDE 20 MEQ TAB 40 MEQ PO (20:35)
[2021-09-20 22:48] LABS: Hemoglobin A1C% w Est Avg Glu 5.1 % (4.0-6.0)
--- NOTE | 2021-09-20 22:51 | P.HP_ITS ---
History of Present Illness History of Present Illness Date Patient Seen: 09/20/21 Time Patient Seen: 22:51 Chief complaint: Sick fever, headaches, Narrative: Yulisa Hodges is a 60 y.o. relatively healthy female who had COVID-19 in early July which is now since resolved, presents with fevers chills, nausea and vomiting, and urinary frequency for the past 2 days. She states she has stress incontinence due to childbirth and reconstructive surgeries and but it has worsened in the past 2 days. Patient uses azo twice daily normally. She also states that she has been very fatigued such as after making her bed going into the living room and sitting on the couch for the better part of the day and getting very exhausted after washing dishes. She continues to have no sense of smell that has been present since she contracted COVID-19. Chest x-ray done in the ED was unremarkable, appear to have some residual lower lung base findings. CT of the abdomen and pelvis was unremarkable, ultrasound of the abdomen and pelvis indicated cholelithiasis without cholecystitis. She was given on dose of IV piptaz, 40 mEq of potassium orally and 2 liters of IV NS. The patient was suspected of having a urinary tract infection, UA panel indicated large amounts of bacteria but did not meet criteria for culture. She initially presented with a temperature of 101.1? to the ED, currently her temperature is 98.8?, blood pressure 137/97 heart rate 96 respiratory rate 36 oxygen saturation 97% on room air she weighs 84.3 kg with a BMI of 28.3. She does have a white count of 12.2 with left shift, sodium 133 potassium 3.0 glucose 133 total bilirubin was 4.5 AST 99 ALT 111 albumin 3.3 lipase was normal procalcitonin was also normal. UA was equivocal for an infection and not cultured, viral panel including COVID-19 PCR was negative. Patient History Medical History (Updated 09/20/21 @ 23:00 by CASEY Pearl) Arthritis of knee COVID-19 Depression Healthy adult History of COVID-19 Stress incontinence Surgical History (Updated 09/20/21 @ 23:00 by CASEY Pearl) H/O colonoscopy H/O vein stripping History of vaginal hysterectomy Hx of hysterectomy Family & Social History Family History (Updated 09/20/21 @ 23:14 by CASEY Pearl) Mother Dementia Father Alive and well Family/Other Liver cancer Social History: household members spouse Safety & Behavioral: Feels Safe in Current Yes Environment Been Physically Hurt or No Threatened By a Person Tobacco & Substance use: Smoking Status Former smoker, quit 1989 alcohol intake frequency a few times a month Substance Use Type does not use Meds Home Medications and Allergies Allergies Allergy/AdvReac Type Severity Reaction Status Date / Time Sulfa (Sulfonamide Allergy Intermediate Rash Verified 06/16/19 09:57 Antibiotics) [SULFA (SULFONAMIDE ANTIBIOTICS)] Review of Systems Review of Systems ROS: Yes All systems reviewed with the patient and are negative except as otherwise documented Exam Vital Signs (past 8 hours): - 09/20/21 16:20 09/20/21 16:46 09/20/21 17:00 Temperature 101.1 F H Pulse Rate 122 H 114 H Respiratory Rate 25 H 22 Blood Pressure 163/82 H 149/83 H 141/61 H Pulse Oximetry 96 95 09/20/21 17:30 09/20/21 18:00 09/20/21 18:24 Temperature 101.1 F H Pulse Rate 105 H Respiratory Rate 27 H Blood Pressure 149/70 H 149/76 H Pulse Oximetry 95 09/20/21 18:30 09/20/21 18:47 09/20/21 19:00 Temperature Pulse Rate 104 H 110 H 101 H Respiratory Rate 24 27 H 30 H Blood Pressure 120/69 135/65 Pulse Oximetry 94 94 92 09/20/21 19:30 09/20/21 20:00 09/20/21 20:30 Temperature 98.8 F Pulse Rate 99 H 94 H 99 H Respiratory Rate 30 H 31 H 25 H Blood Pressure 118/92 H 115/59 L 125/64 Pulse Oximetry 93 92 93 09/20/21 21:00 09/20/21 21:01 09/20/21 21:30 Temperature Pulse Rate 93 H 91 H 96 H Respiratory Rate 27 H 29 H 36 H Blood Pressure 143/76 H 137/97 H Pulse Oximetry 91 91 92 09/20/21 22:05 Temperature Pulse Rate Respiratory Rate Blood Pressure Pulse Oximetry 97 Oxygen Delivery Method Room Air Narrative Exam Narrative: Gen: Alert, oriented, well-developed 60 y.o. female, NAD HEENT: normocephalic, atraumatic, conjunctiva clear, sclera non-icteric, oral mucosa pink and moist Neck: supple, full ROM, no JVD, trachea is midline Resp: Lungs CTA, non-labored breathing CV: RRR, no murmur or rubs Abd: soft, non-tender, normoactive BTs Skin: no lesions or rashes, dry and intact Neuro: Alert and oriented X 4 w/no focal deficits. Speech clear and coherent. Extremities: moves all 4 extremities, is ambulatory, negative Will?s sign Psyche: normal mood and affect. Objective Labs Result Diagrams: 09/20/21 16:45 09/20/21 16:45 Labs: Laboratory Results - last 24 hr 09/20/21 09/20/21 09/20/21 16:26 16:45 16:45 WBC 12.2 H RBC 4.61 Hgb 13.8 Hct 40.0 MCV 86.6 MCH 30.0 MCHC 34.6 RDW 13.1 Plt Count 248 Neut % (Auto) 83.5 H Lymph % (Auto) 5.1 L [place] % (Auto) 3.7 Eos % (Auto) 7.4 H Baso % (Auto) 0.3 Neut # (Auto) 63323 H Lymph # (Auto) 600 L [place] # (Auto) 500 Eos # (Auto) 900 H Baso # (Auto) 0 Sodium 133 L Potassium 3.0 L Chloride 99 Carbon Dioxide 27 BUN 13 Creatinine 0.64 Estimated GFR > 60.0 BUN/Creatinine Ratio 20.3 Glucose 133 H Hemoglobin A1c Lactate Calcium 8.3 L Total Bilirubin 4.5 H AST 99 H ALT 111 H Alkaline Phosphatase 163 H Total Protein 6.7 Albumin 3.3 L Globulin 3.4 Albumin/Globulin Ratio 1.0 Lipase 27 Procalcitonin 0.42 Urine Color Urine Appearance Urine pH Ur Specific [place] Urine Protein Urine Glucose (UA) Urine Ketones Urine Occult Blood Urine Nitrate Urine Bilirubin Ur Bilirubin Confirm Urine Urobilinogen Ur Leukocyte Esterase Urine RBC Urine WBC Ur Squamous Epith Cells Urine Bacteria Urine Mucus Ur Culture Indicated? Chlamy pneumoniae PCR Not detected Adenovirus (PCR) Not detected B. pertussis DNA (PCR) Not detected B.parapertussis DNA PCR Not detected Coronavirus OC43 (PCR) Not detected Coronavirus HKU1 (PCR) Not detected Coronavirus 229E (PCR) Not detected SARS-CoV-2 (PCR) Not detected Coronavirus NL63 (PCR) Not detected Human Metapneumovir PCR Not detected Influenza Type A (PCR) Not detected Influenza Type B (PCR) Not detected M. pneumoniae (PCR) Not detected Parainfluenza 1 (PCR) Not detected Parainfluenza 2 (PCR) Not detected Parainfluenza 3 (PCR) Not detected Parainfluenza 4 (PCR) Not detected RSV (PCR) Not detected Entero/Rhino (PCR) Not detected 09/20/21 09/20/21 09/20/21 16:45 16:45 18:40 WBC RBC Hgb Hct MCV MCH MCHC RDW Plt Count Neut % (Auto) Lymph % (Auto) [place] % (Auto) Eos % (Auto) Baso % (Auto) Neut # (Auto) Lymph # (Auto) [place] # (Auto) Eos # (Auto) Baso # (Auto) Sodium Potassium Chloride Carbon Dioxide BUN Creatinine Estimated GFR BUN/Creatinine Ratio Glucose Hemoglobin A1c 5.1 Lactate 1.4 Calcium Total Bilirubin AST ALT Alkaline Phosphatase Total Protein Albumin Globulin Albumin/Globulin Ratio Lipase Procalcitonin Urine Color [place] Urine Appearance Clear Urine pH 6.5 Ur Specific [place] <=1.005 Urine Protein 2+ H Urine Glucose (UA) Trace H Urine Ketones 1+ H Urine Occult Blood Trace-lysed Urine Nitrate Negative Urine Bilirubin 2+ H Ur Bilirubin Confirm Negative Urine Urobilinogen 2.0 H Ur Leukocyte Esterase Negative Urine RBC 1-5/hpf Urine WBC 1-5/hpf Ur Squamous Epith Cells 1-5 /hpf Urine Bacteria Moderate (10-30) H Urine Mucus 1+ H Ur Culture Indicated? Cult not indicated Chlamy pneumoniae PCR Adenovirus (PCR) B. pertussis DNA (PCR) B.parapertussis DNA PCR Coronavirus OC43 (PCR) Coronavirus HKU1 (PCR) Coronavirus 229E (PCR) SARS-CoV-2 (PCR) Coronavirus NL63 (PCR) Human Metapneumovir PCR Influenza Type A (PCR) Influenza Type B (PCR) M. pneumoniae (PCR) Parainfluenza 1 (PCR) Parainfluenza 2 (PCR) Parainfluenza 3 (PCR) Parainfluenza 4 (PCR) RSV (PCR) Entero/Rhino (PCR) Assessment & Plan Assessment & Plan narrative: Yulisa Mackey will be observed overnight for further evaluation of an initial presentation of sepsis due to suspected urinary tract infection. 1. Sepsis due presumed UTI, acute and present on admission * She is initiated on IV ceftriaxone. * Patient is now normotensive and mildly febrile, though still tachypneac. 2. Possible gastritis unknown if viral * stool studies are pending 3. Elevated liver enzymes, unknown if chronic * Monitor daily * lipase is negative, so pancreatitis not likely 4. Chronic depression * Continue home dose of buproprion 150 mg po daily * Continue home dose of trazodone 100 mg po at bedtime VTE Prophylaxis: Wells risk score 0 [X]Enoxaparin 40 mg subQ once daily [X] Bilateral SCDs Patient is placed into observation as her stay is not expected to exceed 2 midnights. FEN: IV fluids: NS at 100 ml/hour, diet: general, labs: CBC, C/BMP, liver enzymes, Mag, PT/INR Consultants None Dispo: probable discharge to home Code status: Full code as discussed with the patient who identifies her surrogate and POA. [X] I have utilized all available immediate resources to obtain, update, or review of the patient's current medications COVID-19 COVID-19 status: Negative Result date/Date tested (Pos, Neg/Pending): 09/20/21 Scores Wells' Criteria for PE Clinical signs and symptoms of DVT: No PE is #1 Dx or equally likely: No Heart rate > 100: No Immobilization at least 3 days or surg in previous 4 weeks: No History of PE or DVT: No Hemoptysis: No Malignancy w/Treatment within 6 months or palliative: No Wells' PE Score total: 0 Quality VTE Deep Vein Thrombosis/Pulmonary Embolism Present on Admission: No MIPS - Admit I confirm the patient?s Advance Care Plan is present, Code status is documented, Surrogate decision maker is in patient?s record [If Yes, STOP here]: Yes MIPS - DC The patient has current or prior documentation of left ventricular ejection fraction (LVEF) less than 40%, or moderate or severely depressed left ventricular systolic function.: No
[2021-09-20] MEDS: SODIUM CHLORIDE 0.9% 1,000 ML 100 ML IV (23:00)
[2021-09-20] MEDS: cefTRIAXone 1,000 MG in SODIUM CHLORIDE 0.9% 100 ML 200 ML IV (23:51)
[2021-09-21] VITALS (12 sets, daily range): BP systolic 113–129; BP diastolic 53–66; PULSE 96–103; RESP 16–24; TEMP 36.9–37.9; O2SAT 93–97
[2021-09-21] MEDS: TRAZODONE 100 MG TABLET PO ×2 (00:37→20:38)
[2021-09-21] MEDS: ACETAMINOPHEN 325 MG TABLET 650 MG PO ×4 (03:09→23:25)
[2021-09-21] MEDS: ONDANSETRON 4 MG/2 ML INJ IV ×2 (04:10→23:30)
[2021-09-21 05:21] LABS: Add Manual Diff / Slide Review NO; Basophils Absolute Auto 0 /uL (0-100); Basophils Percent Auto 0.2 % (0-2); Eosinophils Absolute Auto 700 /uL (0-450); Eosinophils Percent Auto 7.8 % (2-4); Hematocrit 34.1 % (36-46); Hemoglobin 11.8 g/dL (12.0-16.0); Lymphocytes Absolute Auto 700 /uL (1100-4500); Lymphocytes Percent Auto 8.1 % (25-40); Mean Corpuscular HGB Conc 34.5 % (30-36); Mean Corpuscular Hemoglobin 30.2 PG (26-34); Mean Corpuscular Volume 87.6 fL (80-100); Monocytes Absolute Auto 300 /uL (0-900); Monocytes Percent Auto 4.1 % (3-14); Neutrophils Absolute Auto 6800 /uL (1500-7000); Neutrophils Percent Auto 79.8 % (50-75); Platelet Count 196 X10^3/uL (150-400); Red Blood Cell Count 3.89 X10^6/uL (4.0-5.2); White Blood Cell Count 8.6 X10^3/uL (4.5-11.0)
[2021-09-21 05:29] LABS: BUN Creatinine Ratio 18.2 (6-22); Blood Urea Nitrogen 10 mg/dL (7-17); Calcium 7.5 mg/dL (8.4-10.2); Carbon Dioxide 26 mmol/L (22-32); Chloride 104 mmol/L (98-107); Estimated Glomerular Filt Rate > 60.0 mL/min (>60); Glucose 125 mg/dL (80-110); HEMOLYSIS < 15 (0-50); Potassium 3.1 mmol/L (3.4-5.1); Sodium 134 mmol/L (137-145)
[2021-09-21] MEDS: LATANOPROST 0.005% OPHTH 2.5 ML 1 DROPS EYE-BOTH (09:27)
[2021-09-21] MEDS: ENOXAPARIN 40 MG/0.4 ML SYRINGE SUBCUT (09:27)
[2021-09-21] MEDS: buPROPion XL 150 MG TAB PO (09:27)
[2021-09-21] MEDS: SODIUM CHLORIDE 0.9% 1,000 ML 100 ML IV (09:30)
[2021-09-21] MEDS: POTASSIUM CHLORIDE 20 MEQ TAB 40 MEQ PO ×2 (09:30→14:45)
--- NOTE | 2021-09-21 10:55 | OT.IP.EVAL ---
Past Medical History (Last Updated 09/20/21 @ 23:00 by CASEY Pearl) Arthritis of knee COVID-19 Depression H/O colonoscopy H/O vein stripping Healthy adult History of COVID-19 History of vaginal hysterectomy Hx of hysterectomy Stress incontinence Surgical History (Last Updated 09/20/21 @ 23:00 by CASEY Pearl) H/O colonoscopy H/O vein stripping History of vaginal hysterectomy Hx of hysterectomy Occupational Therapy Inpatient Evaluation/Re-Eval M1 PT/OT-IP Prior Functional Status Start: 09/21/21 11:20 Freq: NEEDED Status: Active Protocol: Document 09/21/21 11:54 AW (Rec: 09/21/21 12:04 AW [id number]) Medical Review Prior Functional Status Medical History Reviewed Yes Communication WNL Mobility and Gait Pt is independent without assisted device. She notes she is less active than usual recently secondary to COVID infection in July and increasing bilateral hip pain (L more affected than R). Pt states she feels she is operating at 25% of her normal functional capacity. Activities of Daily Living and IADL's Independent Prior Functional Level (Other details) Pt had COVID in July and feels she has not fully recovered. She has depression which is treated with wellbutrin but pt denies any non-medical mental health care . Pt reports stress incontinence which is chronic since childbirth. Social History Household Members none Living Arrangements Apartment/Condo Number of Floors (Floors) One Floor Number of Stairs To Enter/Railing? 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 She is recently . Her sister is retired and lives in [place]. M2 OT-IP Current Condition Start: 09/21/21 11:48 Freq: Status: Active Protocol: Document 09/21/21 11:49 CCC (Rec: 09/21/21 12:07 CCC [id number]) Occupational Therapy Current Condition Current Condition Evaluation Date 09/21/21 Treatment Diagnosis Sepsis and UTI Diagnosis Onset Date 09/21/21 M3 OT- IP Subjective and Pain Start: 09/21/21 11:48 Freq: Status: Active Protocol: Document 09/21/21 11:49 CCC (Rec: 09/21/21 12:07 [facility] [id number]) OT- Subjective Occupational Therapy Visit Type Type Initial Evaluation Visit Start Time 10:25 Visit Stop Time 10:55 Total Visit Minutes 30 Occupational Therapy Visit Comments Patient Comments Pt agreed to get up. Patient/Caregiver Goals To go home. OT Pain Assessment Pain When Pain Assessed At Rest Pain Present Pain Present Denied Pain M4 OT- IP ADL's Start: 09/21/21 11:48 Freq: Status: Active Protocol: Document 09/21/21 11:49 [facility] (Rec: 09/21/21 12:07 [facility] [id number]) OT [id number] General Evaluation Self-Feeding Ability Independent OT ADL-Grooming General Evaluation Grooming Ability Independent OT ADL-Oral Care General Eval Oral Care Ability Independent OT ADL-Dressing General Eval Lower Body Dressing Ability Standby Assistance Comments OT Dressing Comments Pt needing increased time L> R to put on her socks while seated at the edge of the bed. OT ADL-Toileting Comments OT Toileting Comments Pt not having to use the bathroom. Pt states uses incontinent pads at home. OT ADL-Bathing Comments OT Bathing Comments Pt would benefit from a shower chair at home to use. M5 OT- IP IADL's Start: 09/21/21 11:48 Freq: Status: Active Protocol: Document 09/21/21 11:49 [facility] (Rec: 09/21/21 12:07 [facility] [id number]) OT-Instrumental Activities of Daily Living Home Safety Awareness Ability to Problem Solve Emergency Able to Problem Solve Situations Medication Management Medication Management No Deficits Identified Money Management Money Management No Deficits Identified Meal Preparation Meal Preparation Comments Pt would benefit from assist due to decreased activity tolerance and dynamic balance at this time. Patient Partner Patient Partner Comments Pt would benefit from assist due to decreased activity tolerance and dynamic balance at this time. M6 OT- IP Functional Cognition Start: 09/21/21 11:48 Freq: Status: Active Protocol: Document 09/21/21 11:49 [facility] (Rec: 09/21/21 12:07 [facility] [id number]) Cognitive Factors Limiting Selfcare Function Cognitive Ability Level of Alertness Alert Patient Orientation Name,Age,Place,Situation Attention Span Ability Capable of Focused Attention, Capable of Sustained Attention Ability to Follow Commands Able to Follow Multi-Step Commands Cognitive Comments Cognitive Assessment Comments Pt needing encouragement to initiate to get up to do grooming needs. Able to go over stress management strategies with pt. Pt open to having her sister stay with her initially at home. OT- Vision and Hearing OT- Hearing Assessment OT- Hearing Assessment WFL OT- Vision Assessment Visual Acuity WFL M7 OT- IP Mobility and Balance Start: 09/21/21 11:48 Freq: Status: Active Protocol: Document 09/21/21 11:49 [facility] (Rec: 09/21/21 12:07 [facility] [id number]) OT- Bed Mobility Assessment Rolling Type of Rolling Roll to Right Level of Assistance Standby Assistance Supine to Sit Supine to Sit Assist Standby Assistance Sit to Supine Sit to Supine Assist Standby Assistance OT-Transfer Assessment Sit to and From Stand Sit to and from Stand Contact Guard Assistance Transfers Transfer Ability Contact Guard Assistance Technique Transfer Destination Bed Transfer Technique Stand Step Pivot Devices Transfer Assistive Devices None,Gait Belt Comments Mobility Comments Pt able to stand with CGA and use of IV pole, surfaces in the room to get to the sink and occasional CGA while walking back to the bed at this time. OT- Balance Assessment Sitting Balance and Reactions Static Sitting Balance Ability Good Dynamic Sitting Balance Ability Good Standing Balance and Reactions Static Standing Balance Ability Fair Dynamic Standing Balance Ability Poor M8 OT- IP Objective Assessments Start: 09/21/21 11:48 Freq: Status: Active Protocol: Document 09/21/21 11:49 [facility] (Rec: 09/21/21 12:07 [facility] [id number]) OT Gross Range of Motion Upper Extremity Range of Motion Assessment Within Functional Limits OT Strength Upper Extremity Strength Assessment Within Functional Limits OT-Muscle Tone Assessment Muscle Tone WNL Yes M9 OT- IP Assessment and Plan Start: 09/21/21 11:48 Freq: Status: Active Protocol: Document 09/21/21 11:49 [facility] (Rec: 09/21/21 12:07 [facility] [id number]) OT Summary Assessment and Plan Potential Rehabilitation Potential Good Analytic Complexity at Evaluation Moderate Summary OT Impairments Balance,Functional Mobility, Dressing,Toileting,Bathing, Toilet Transfers,Shower Transfers,Activity Tolerance Progress Towards Goals Progressing Toward Goals Assessment Summary Pt mod complexity and main barriers are steps, decreased activity tolerance, dynamic balance, and would benefit from assist at home at this time. Pt states that her sister can come and stay with her. In addition pt wanting information of trying to eat better for herself and spoke to nursing to request a dietary consult for the pt. Able to speak to PT and deciding that it would be best to have pt go to outpt PT for her balance and women's health needs. Goals Self-Feeding Goal Independent Grooming Goal Independent Dressing Goal Independent Toileting Goal Independent Bathing Goal Independent Toilet Transfer Goal Independent Shower Transfer Goal Independent Days to Meet Goals 10 Frequency of Treatment Frequency Of Treatment Once a Day Treatment Plan OT Treatment Plan ADL Training,Functional Cognition Training,Functional Mobility,Patient/Family Education,Discharge Planning Other Treatment Recommendations and Next shower Treatment Focus Discharge Recommendations OT Discharge Recommendations Home with 24/7 Assist Available Home Equipment Needs shower chair Transportation Needs at Discharge Private Vehicle
--- NOTE | 2021-09-21 11:54 | PT.IIE ---
Medical History (Last Updated 09/20/21 @ 23:00 by CASEY Pearl) Arthritis of knee COVID-19 Depression Healthy adult History of COVID-19 Stress incontinence Physical Therapy Inpatient Evaluation/Re-Eval M1 PT/OT-IP Prior Functional Status Start: 09/21/21 11:20 Freq: NEEDED Status: Active Protocol: Document 09/21/21 11:54 AW (Rec: 09/21/21 12:04 AW [id number]) Medical Review Prior Functional Status Medical History Reviewed Yes Communication WNL Mobility and Gait Pt is independent without assistive device. She notes she is less active than usual recently secondary to COVID infection in July and increasing bilateral hip pain (L more affected than R). Pt states she feels she is operating at 25% of her normal functional capacity. Activities of Daily Living and IADL's Independent Prior Functional Level (Other details) Pt had COVID in July and feels she has not fully recovered. She has depression which is treated with wellbutrin but pt denies any non-medical mental health care . Pt reports stress incontinence which is chronic since childbirth. Social History Household Members none Living Arrangements Apartment/Condo Number of Floors (Floors) One Floor Number of Stairs To Enter/Railing? 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 She is recently . Her sister is retired and lives in [place]. M2 PT-IP Current Condition Start: 09/21/21 11:20 Freq: NEEDED Status: Active Protocol: Document 09/21/21 11:54 AW (Rec: 09/21/21 12:04 AW [id number]) Physical Therapy Current Condition Current Condition Evaluation Date 09/21/21 Treatment Diagnosis UTI, sepsis, B hip pain, impaired balance and gait Onset Date 09/20/21 M3 PT-IP Subjective Start: 09/21/21 11:20 Freq: NEEDED Status: Active Protocol: Document 09/21/21 11:54 AW (Rec: 09/21/21 12:28 AW [id number]) Subjective Physical Therapy Visit Type Type Initial Evaluation Visit Start Time 11:33 Visit Stop Time 11:54 Total Visit Minutes 21 Notes Has not had a bowel movement since 09/13. 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 Therapy Pain Assessment Pain When Pain Assessed During Mobility Location bilateral hips Scale Used left worse than right; not quantified headache Scale Used frontal DEWITT, not quantified M4 PT-IP Mobility and Gait Start: 09/21/21 11:20 Freq: NEEDED Status: Active Protocol: Document 09/21/21 11:54 AW (Rec: 09/21/21 12:28 AW [id number]) PT-Bed Mobility Assessment Supine to Sit Supine to Sit Independent Sit to Supine Sit to Supine Independent PT-Transfer Assessment Sit to and From Stand Sit to and from Stand Standby Assistance,Use of Upper Extremities Equipment Transfer Assistive Device Gait Belt Orthotic/Prosthetic Devices or Brace: No Transfers Transfer Destination Bed,Toilet Transfer Technique Stand Step Pivot Transfer Ability Level of Assist Standby Assistance Comments Mobility Comments Pt was on the toilet as PT arrived. She stood, ambulated to the bed, and returned to supine SBA. BP was 113/65 HR 103 SpO2 94% on room air. Pt sat up EOB SBA and stood without AD. She was initially unsteady and reached for the IV pole. Pt walked in the halls a total of 150 feet without AD SBA with evidence of imbalance and lateral LOB to the right x 3 requiring CGA for recovery. During last 50 feet, pt used the rail on her right side while ambulting the halls to maintain her balance . On return to the room, pt returned to supine SBA. VS were stable. Pt was left with call light and all needs in reach. Gait Assessment Gait Gait Assistance Required: Standby Assistance,Contact Guard Assist Distance (Feet) 150 Assistive Devices Assistive Device None,Gait Belt Orthotic/Prosthetic Devices or Brace: No Gait Deviations General Gait Pattern Antalgic,Lateral Trunk Lean, Step-to Gait Factors Limiting Gait Function Factors Limiting Gait Function Decreased Activity Tolerance, Decreased Strength,Pain,Poor Balance,Poor Safety Awareness Comments Gait Comments Pt has decreased stance time LLE - consistent with reports of worse hip pain on the left side. 4-item DGI scored 8/12 with single points deducted for all categories. Stair Climbing Assessment Comments Stair Climbing Comments Not assessed. PT-Balance Assessment Sitting Balance and Reactions Static Sitting Balance Ability Normal Dynamic Sitting Balance Ability Normal Standing Balance and Reactions Static Standing Balance Ability Fair Dynamic Standing Balance Ability Fair Device Used no AD Functional Assessments Functional Tests Dynamic Gait Index 4-item DGI: 8/12 M5 PT-IP Objective Assessments Start: 09/21/21 11:20 Freq: NEEDED Status: Active Protocol: Document 09/21/21 11:54 AW (Rec: 09/21/21 12:28 AW [id number]) Orientation Orientation/Cognition Level of Alertness Alert Orientation Name,Day of Week,Place, Situation Language Function Ability No Deficits Noted Safety Awareness Understands Safety Issues Memory Description No Deficits Noted Gross Range of Motion Lower Extremity ROM Assessment Within Functional Limits Strength Lower Extremity Strength Assessment Bilaterally Impaired Hip 4-/5 Knee 4+/5 Ankle 4+/5 Sensation Assessment Sensation Gross Sensation WNL M6 PT-IP Treatment Start: 09/21/21 11:20 Freq: NEEDED Status: Active Protocol: Document 09/21/21 11:54 AW (Rec: 09/21/21 12:04 AW [id number]) Physical Therapy Treatment Education Education Provided Safety Other Treatments Other Treatment Performed Educated pt on PT plan of care and importance of continuing to walk with nursing to improve bowel motility. Discussed outpatient PT recommendation and pt verbalized understanding and agreement. 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 She has depression, bilateral hip pain, and stress incontinence at baseline. She is typically independent in all regards. She self-reports feeling like she is operating at 25% of her normal functional capacity. On assessment, pt required SBA /CGA for ambulation without AD . Gait was antalgic - affected by hip pain. She had 3 lateral LOB during gait requiring CGA for recovery. She scored 8/12 on 4-item DGI indicating impaired dynamic balance. Pt lives alone but states her sister may be able to stay with her a few days at discharge. PT anticipates she will be safe to discharge home with assist. She may benefit from an assistive device. She would certainly benefit from outpatient PT to address hip pain, incontinence , and dynamic balance deficits . Goals Transfer Goal Independent Gait Goal Independent,Cane Gait Distance 250 Other Goals - up/down 12 steps with B rails SBA - improve ambulation to 250 feet with no AD IND Days to Meet Goals 5 Frequency of Treatment Frequency Of Treatment Once a Day Treatment Plan Physical Therapy Treatment Plan Transfer Training,Gait Training,Therapeutic Exercise, Balance Retraining,Discharge Planning,Hot or Cold Pack, Neuromuscular Re-ed Other Recommendations and Next Treatment consider full DGI or FGA; Focus trial gait with SPC and train if appropriate; assess safety on stairs Recommendations To Nursing Amount of Assist Needed Standby Assistance,1 Person Assist Discharge Recommendations PT Discharge Recommendations Home with Assistance, Outpatient PT Transportation Needs at Discharge Private Vehicle
--- NOTE | 2021-09-21 14:31 | DIET.CONS ---
Dietary Consultation Note Admission Date: 09/20/2021 21:57 Assessment: 60y F admitted with fever, headache, residual covid sx (testing negative) referred to nutrition for help with meal planning at home. Pt lives alone and is dealing with fatigue, taste and smell loss, depression since covid dx last summer. She is not eating well and requested help for meal planning. Pt feels she doesn't have enough energy to grocery shop or prepare meals. Her dishes have been sitting in the sink for a week. Pt avoiding many protein foods secondary to them tasting off. Pt with minimal food in home because of these barriers. When idea generating c pt, she states she tried to make a rice power bowl but it didn't taste right and she got wiped out energy ag from the preparation. Review of pts weight hx shows her WNL x3y. Ht: 172.72 cm Wt: 84.368 kg BMI: 28.3 UBW: 79-85kg MNA: Dariel Score: 21 Diet: 09/20/21 Breakfast General (Regular) Diet Diet Modifications: Nutrition Percent Meal Consumed 50% 09/21/21 09:14 Labs: RBC 3.89 X10^6/uL (4.0-5.2) L 09/21/21 04:50 Hgb 11.8 g/dL (12.0-16.0) L 09/21/21 04:50 Hct 34.1 % (36-46) L 09/21/21 04:50 Creatinine 0.55 mg/dL (0.52-1.04) 09/21/21 04:50 Hemoglobin A1c 5.1 % (4.0-6.0) 09/20/21 16:45 Lactate 1.4 mmol/L (0.7-2.1) 09/20/21 16:45 Interventions: 1. Sat with pt and discussed her nutrition and home situation in order to create goals which were attainable and realistic based on her current situation. Plan as follows: Pt will start an [employer] order for [employer] grocery store while still in hospital. Pt will time curbside picket labor union for when she is d/c from hospital to grab groceries on that drive home. Pt will focus on easy to eat items requiring very little prep or cleanup that will support her immune system and strength: yogurt, cheese sticks, rotisserie chicken, canned beans and soups, bagged salads, prechopped veggies, peanut butter... Electronically Signed by: Laxmi Field 09/21/21 14:31 Clinical Dietitian [address] [id number]
--- NOTE | 2021-09-21 15:01 | CM.DANOTE ---
Patient is a 60 yo female who was admitted on 09/20/21 for Fever/Headaches. Pt has [employer] for insurance and her PCP is Lior Johnson. EMR was reviewed. Per MD, pt with his of resolved COVID+ in Jul 2021 a couple months ago and now admitted with bacteremia and possible UTI/Sepsis. Per PT/OT, recommending safe d/c home and outpt PT when medically stable. 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 Pt states her biggest support is her sister who lives in [place] who may be the one providing transport home at d/c. Pt does not anticipate any d/c needs when stable for discharge and preference is home and getting back to work as soon as she can. Plan: SW to follow for plan of home when medically stable and any further identified needs. PAT Ferro Discharge Planning/Care Management CM Discharge Assessment Start: 09/21/21 14:59 Freq: Status: Active Protocol: Document 09/21/21 14:59 BF (Rec: 09/21/21 15:01 BF [id number]) Discharge Planning Assessment Assigned Language Tutor PAT Lerner DPOA/Assigned Designee Name informally sister Cristiana Contact Information [phone] Advance Directives? No Advance Directives on File No History Provided By Patient,Medical Record Has Patient been admitted in last 30 No days? Prior Living Arrangements Apartment/Condo Household Members none Type of transporation used prior to Drives own vehicle admit Independent with ADL's Yes Is patient alert and oriented? Yes Caregiver for Another No Patient/Family Preference OP PT Therapy Barriers to Discharge No Discharge Plan Home Community Services Physical Therapy Transportation Arrangement Sister to likely provide transport at d/c Referrals Initiated None needed Whiteboard Updated in Patient Room with Yes name and ext. # of Language Tutor Review Status In Process Please Provide Date Initial DC 09/21/21 Assessment Was Performed Next Review Type Continued Stay Review
[2021-09-21] MEDS: BENZONATATE 100 MG CAPSULE 200 MG PO ×2 (16:14→20:38)
--- NOTE | 2021-09-21 17:20 | P.PN_ITS ---
Subjective Subjective Date Patient Seen: 09/21/21 Interval history: PATIENT STATED THAT SHE FEELS MUCH BETTER NO CHILLS HOWEVER HAD SOME FEVER OVERNIGHT DENIES ANY COUGHING NO CHEST PAIN. NO SHORTNESS OF BREATH NO NAUSEA OR VOMITING Exam Vital Signs (past 8 hours): - 09/21/21 12:00 09/21/21 12:45 09/21/21 15:45 Temperature 98.4 F 100.2 F H Pulse Rate 103 H 102 H Respiratory Rate 18 20 Blood Pressure 113/65 124/62 Pulse Oximetry 94 94 93 09/21/21 16:00 Temperature Pulse Rate Respiratory Rate Blood Pressure Pulse Oximetry 93 Oxygen Delivery Method Room Air Oxygen Flow Rate 0 Narrative Exam Narrative: NO ACUTE DISTRESS. PATIENT IS ALERT ORIENTED X3. HEAD ATRAUMATIC NORMOCEPHALIC NECK : SUPPLE WITHOUT ADENOPATHY NO CAROTID BRUITS EYE: EOMI, PERRLA, NORMAL CONJUNCTIVA; NO JAUNDICE CHEST: REGULAR RATE. NO RUBS. PMI IS NON DISPLACED. NO MURMURS; NORMAL S1- S2 PULMONARY: DECREASED BS OVER THE BASES. MILD BIBASILAR CRACKLES NOTED; NO INCREASED DULLNESS TO PERCUSSION ABDOMEN: SOFT. NONTENDER. NONDISTENDED. BOWEL SOUNDS ARE PRESENT IN ALL 4 QUADRANTS. NO MASS. EXTREMITIES: NO EDEMA.. NO CYANOSIS CLUBBING NOTED. NEURO: CRANIAL NERVES 2-12 GROSSLY INTACT. NO FOCAL NEUROLOGICAL DEFICIT NOTED. MSK: NORMAL RANGE OF MOTION FOR AGE. NO JOINT EFFUSION. SKIN: NORMAL FOR ETHNICITY; NO ECCHYMOSIS. NO LESION. GOOD TURGOR.; NO RASHES : NORMAL EXTERNAL GENITALIA. PSYCH : APPROPRIATE MOOD AND AFFECT. ALERT AWAKE ORIENTED X3 Objective Labs Result Diagrams: 09/21/21 04:50 09/21/21 04:50 Labs: Laboratory Results - last 24 hr 09/20/21 09/20/21 09/20/21 16:26 16:45 16:45 WBC RBC Hgb Hct MCV MCH MCHC RDW Plt Count Neut % (Auto) Lymph % (Auto) [place] % (Auto) Eos % (Auto) Baso % (Auto) Neut # (Auto) Lymph # (Auto) [place] # (Auto) Eos # (Auto) Baso # (Auto) Sodium Potassium Chloride Carbon Dioxide BUN Creatinine Estimated GFR BUN/Creatinine Ratio Glucose Hemoglobin A1c 5.1 Calcium Procalcitonin 0.42 Urine Color Urine Appearance Urine pH Ur Specific [place] Urine Protein Urine Glucose (UA) Urine Ketones Urine Occult Blood Urine Nitrate Urine Bilirubin Ur Bilirubin Confirm Urine Urobilinogen Ur Leukocyte Esterase Urine RBC Urine WBC Ur Squamous Epith Cells Urine Bacteria Urine Mucus Ur Culture Indicated? Chlamy pneumoniae PCR Not detected Adenovirus (PCR) Not detected B. pertussis DNA (PCR) Not detected B.parapertussis DNA PCR Not detected Coronavirus OC43 (PCR) Not detected Coronavirus HKU1 (PCR) Not detected Coronavirus 229E (PCR) Not detected SARS-CoV-2 (PCR) Not detected Coronavirus NL63 (PCR) Not detected Human Metapneumovir PCR Not detected Influenza Type A (PCR) Not detected Influenza Type B (PCR) Not detected M. pneumoniae (PCR) Not detected Parainfluenza 1 (PCR) Not detected Parainfluenza 2 (PCR) Not detected Parainfluenza 3 (PCR) Not detected Parainfluenza 4 (PCR) Not detected RSV (PCR) Not detected Entero/Rhino (PCR) Not detected 09/20/21 09/21/21 09/21/21 18:40 04:50 04:50 WBC 8.6 RBC 3.89 L Hgb 11.8 L Hct 34.1 L MCV 87.6 MCH 30.2 MCHC 34.5 RDW 13.0 Plt Count 196 Neut % (Auto) 79.8 H Lymph % (Auto) 8.1 L [place] % (Auto) 4.1 Eos % (Auto) 7.8 H Baso % (Auto) 0.2 Neut # (Auto) 6800 Lymph # (Auto) 700 L [place] # (Auto) 300 Eos # (Auto) 700 H Baso # (Auto) 0 Sodium 134 L Potassium 3.1 L Chloride 104 Carbon Dioxide 26 BUN 10 Creatinine 0.55 Estimated GFR > 60.0 BUN/Creatinine Ratio 18.2 Glucose 125 H Hemoglobin A1c Calcium 7.5 L Procalcitonin Urine Color [place] Urine Appearance Clear Urine pH 6.5 Ur Specific [place] <=1.005 Urine Protein 2+ H Urine Glucose (UA) Trace H Urine Ketones 1+ H Urine Occult Blood Trace-lysed Urine Nitrate Negative Urine Bilirubin 2+ H Ur Bilirubin Confirm Negative Urine Urobilinogen 2.0 H Ur Leukocyte Esterase Negative Urine RBC 1-5/hpf Urine WBC 1-5/hpf Ur Squamous Epith Cells 1-5 /hpf Urine Bacteria Moderate (10-30) H Urine Mucus 1+ H Ur Culture Indicated? Cult not indicated Chlamy pneumoniae PCR Adenovirus (PCR) B. pertussis DNA (PCR) B.parapertussis DNA PCR Coronavirus OC43 (PCR) Coronavirus HKU1 (PCR) Coronavirus 229E (PCR) SARS-CoV-2 (PCR) Coronavirus NL63 (PCR) Human Metapneumovir PCR Influenza Type A (PCR) Influenza Type B (PCR) M. pneumoniae (PCR) Parainfluenza 1 (PCR) Parainfluenza 2 (PCR) Parainfluenza 3 (PCR) Parainfluenza 4 (PCR) RSV (PCR) Entero/Rhino (PCR) PFSH Medical History (Updated 09/20/21 @ 23:00 by CASEY Pearl) Arthritis of knee COVID-19 Depression Healthy adult History of COVID-19 Stress incontinence Surgical History (Updated 09/20/21 @ 23:00 by CASEY Pearl) H/O colonoscopy H/O vein stripping History of vaginal hysterectomy Hx of hysterectomy Family History (Updated 09/20/21 @ 23:14 by CASEY Pearl) Mother Dementia Father Alive and well Family/Other Liver cancer Social History household members: none Smoking Status: Former smoker Assessment & Plan Assessment & Plan narrative: PROBLEM LIST URINARY TRACT INFECTION. LIKELY GRAM-NEGATIVE BACTERIA POSSIBLE SEPSIS. PRESENT ON ARRIVAL. ASSOCIATED WITH UA CHECK INFECTION ANEMIA. CONSIDER CHRONIC DISEASE VERSUS VITAMIN DEFICIENCY HYPOKALEMIA. MULTIFACTORIAL OVERWEIGHT. BMI OF 28 CHOLELITHIASIS. INCIDENTAL FINDING. AWARE ELEVATED LIVER ENZYMES HAD CONSIDERED TRANSIENT CHOLEDOCHOLITHIASIS GENERALIZED WEAKNESS. COULD HAVE BEEN ASSOCIATED WITH DINNER TRACT INFECTION PLAN ABDOMINAL IMAGING DID NOT SHOW ANY SIGN OF ACUTE CHOLECYSTITIS ULTRASOUND THIS CONFIRMED CHOLELITHIASIS WITHOUT CHOLECYSTITIS WELL COULD BE SEEN BY GENERAL SURGERY OUTPATIENT FOR POSSIBLE CHOLECYSTECTOMY IF NEEDED IN REGARD TO URINARY TRACT INFECTION, SENT FOR URINE CULTURE AND FOLLOW CLOSELY CONTINUE ROCEPHIN CONTINUE IV FLUID FOR ANATOMIC 4 HOURS MONITOR INPUT AND OUTPUT CLOSELY MONITOR FOR ANY SIDE EFFECT FROM ANTIBIOTIC THERAPY WELL WILL ADD ACIDOPHILUS WILL ALSO CHECK FOR VITAMIN LEVELS PATIENT HAS BEEN REFERRED TO THE PHYSICAL THERAPY AND OCCUPATIONAL THERAPY TEAM FOR EVALUATION DUE TO REPORTED GENERALIZED WEAKNESS MAINTAIN FALL AND ASPIRATION PRECAUTIONS AT ALL TIMES ADDITIONAL MANAGEMENT PER CLINICAL COURSE DISCHARGE 1-2 DAYS Time Spent With Patient Critical Care time: I spent a total of [] minutes of critical care time on this patient's care today; this time is exclusive of procedural time. Quality VTE Deep Vein Thrombosis/Pulmonary Embolism Present on Admission: No
[2021-09-21] MEDS: SODIUM CHLORIDE 0.9% 1,000 ML 50 ML IV (21:44)
[2021-09-21] MEDS: cefTRIAXone 1,000 MG in SODIUM CHLORIDE 0.9% 100 ML 200 ML IV (23:26)
[2021-09-22] VITALS (8 sets, daily range): BP systolic 136–155; BP diastolic 68–78; PULSE 90–98; RESP 16–19; TEMP 36.4–38.4; O2SAT 92–95
[2021-09-22 05:44] LABS: Add Manual Diff / Slide Review NO; Basophils Absolute Auto 0 /uL (0-100); Basophils Percent Auto 0.2 % (0-2); Eosinophils Absolute Auto 900 /uL (0-450); Eosinophils Percent Auto 9.3 % (2-4); Hematocrit 33.6 % (36-46); Hemoglobin 11.5 g/dL (12.0-16.0); Lymphocytes Absolute Auto 1200 /uL (1100-4500); Lymphocytes Percent Auto 12.7 % (25-40); Mean Corpuscular HGB Conc 34.3 % (30-36); Mean Corpuscular Hemoglobin 30.2 PG (26-34); Mean Corpuscular Volume 88.1 fL (80-100); Monocytes Absolute Auto 500 /uL (0-900); Monocytes Percent Auto 5.7 % (3-14); Neutrophils Absolute Auto 6600 /uL (1500-7000); Neutrophils Percent Auto 72.1 % (50-75); Platelet Count 249 X10^3/uL (150-400); Red Blood Cell Count 3.82 X10^6/uL (4.0-5.2); Red Cell Distribution Width 13.8 % (11.6-14.8); White Blood Cell Count 9.2 X10^3/uL (4.5-11.0)
[2021-09-22 05:50] LABS: Alanine Aminotransferase 73 IU/L (<35); Albumin 2.5 g/dL (3.5-5.0); Albumin Globulin Ratio 0.9 (1.0-2.8); Alkaline Phosphatase 157 U/L (38-126); Aspartate Aminotransferase 48 IU/L (14-36); BUN Creatinine Ratio 18.2 (6-22); Bilirubin Total 1.9 mg/dL (0.2-1.3); Blood Urea Nitrogen 10 mg/dL (7-17); Calcium 7.7 mg/dL (8.4-10.2); Carbon Dioxide 27 mmol/L (22-32); Chloride 106 mmol/L (98-107); Estimated Glomerular Filt Rate > 60.0 mL/min (>60); Globulin 2.7 g/dL (1.7-4.1); Glucose 104 mg/dL (80-110); HEMOLYSIS < 15 (0-50); Iron 25 ug/dL (37-170); Potassium 3.8 mmol/L (3.4-5.1); Sodium 136 mmol/L (137-145); Total Protein 5.2 g/dL (6.3-8.2)
[2021-09-22 06:00] LABS: Percent Iron Saturation 16 % (15-50); Total Iron Binding Capacity 156 ug/dL (265-497)
[2021-09-22 06:37] LABS: Vitamin B12 290 pg/mL (239-931)
[2021-09-22 07:00] LABS: Transferrin 82 mg/dL (206-381)
[2021-09-22] MEDS: LATANOPROST 0.005% OPHTH 2.5 ML 1 DROPS EYE-BOTH (08:51)
[2021-09-22] MEDS: BENZONATATE 100 MG CAPSULE 200 MG PO ×2 (08:52→15:53)
[2021-09-22] MEDS: buPROPion XL 150 MG TAB PO (08:52)
[2021-09-22] MEDS: ENOXAPARIN 40 MG/0.4 ML SYRINGE SUBCUT (08:52)
[2021-09-22] MEDS: ACETAMINOPHEN 325 MG TABLET 650 MG PO ×2 (08:52→15:53)
[2021-09-22] MEDS: LACTOBACILLUS ACIDOPHILUS TABLET 1 EACH PO ×2 (08:53→12:13)
--- NOTE | 2021-09-22 10:54 | OT.IP.TRT ---
Occupational Therapy Treatment Note M2 OT-IP Current Condition Start: 09/21/21 11:48 Freq: Status: Active Protocol: Document 09/21/21 11:49 [facility] (Rec: 09/21/21 12:07 [facility] [id number]) Occupational Therapy Current Condition Current Condition Evaluation Date 09/21/21 Treatment Diagnosis Sepsis and UTI Diagnosis Onset Date 09/21/21 M3 OT- IP Subjective and Pain Start: 09/21/21 11:48 Freq: Status: Active Protocol: Document 09/22/21 10:56 [facility] (Rec: 09/22/21 11:11 [facility] [id number]) OT- Subjective Occupational Therapy Visit Type Type Treatment Note Visit Start Time 10:25 Visit Stop Time 10:54 Total Visit Minutes 29 Occupational Therapy Visit Comments Patient Comments Pt agreed to shower after encouragement. Patient/Caregiver Goals To go home. OT Pain Assessment Pain When Pain Assessed At Rest Pain Present Pain Present Pain Reported Location headache Intensity 4 Scale Used Numeric (0 - 10) M4 OT- IP ADL's Start: 09/21/21 11:48 Freq: Status: Active Protocol: Document 09/22/21 10:56 [facility] (Rec: 09/22/21 11:11 [facility] [id number]) OT [id number] General Evaluation Self-Feeding Ability Independent OT ADL-Grooming General Evaluation Grooming Ability Independent OT ADL-Oral Care General Eval Oral Care Ability Independent OT ADL-Dressing General Eval Upper Body Dressing Ability Independent Lower Body Dressing Ability Standby Assistance Comments OT Dressing Comments SBA when pulling up brief over her hips. OT ADL-Toileting General Evaluation Toileting Ability Independent OT ADL-Bathing Bathing Type Bathing Type Shower General Evaluation Bathing Ability Standby Assistance Devices Bathing Equipment Shower Chair with Arms,Grab Bars Comments OT Bathing Comments Pt having to use the grab bars to steady herself while standing to shower and then agreed to sit to complete the rest of the shower as getting a little SOB. Pt is aware would be best to get a shower chair for home use and to have her sister present for safety . M5 OT- IP IADL's Start: 09/21/21 11:48 Freq: Status: Active Protocol: Document 09/21/21 11:49 [facility] (Rec: 09/21/21 12:07 [facility] [id number]) OT-Instrumental Activities of Daily Living Home Safety Awareness Ability to Problem Solve Emergency Able to Problem Solve Situations Medication Management Medication Management No Deficits Identified Money Management Money Management No Deficits Identified Meal Preparation Meal Preparation Comments Pt would benefit from assist due to decreased activity tolerance and dynamic balance at this time. Child And Adolescent Psychologist Child And Adolescent Psychologist Comments Pt would benefit from assist due to decreased activity tolerance and dynamic balance at this time. M6 OT- IP Functional Cognition Start: 09/21/21 11:48 Freq: Status: Active Protocol: Document 09/22/21 10:56 [facility] (Rec: 09/22/21 11:11 [facility] [id number]) Cognitive Factors Limiting Selfcare Function Cognitive Comments Cognitive Assessment Comments Pt scored 74 seconds on [place] Making Part B which implies normal but not perfect for cognitive needs. M7 OT- IP Mobility and Balance Start: 09/21/21 11:48 Freq: Status: Active Protocol: Document 09/22/21 10:56 [facility] (Rec: 09/22/21 11:11 [facility] [id number]) OT- Bed Mobility Assessment Supine to Sit Supine to Sit Assist Independent Sit to Supine Sit to Supine Assist Independent OT-Transfer Assessment Sit to and From Stand Sit to and from Stand Independent Transfers Transfer Ability Standby Assistance Technique Transfer Destination Bed,Shower Stall,Toilet Transfer Technique Stand Step Pivot Devices Transfer Assistive Devices None Comments Mobility Comments distant SBA for mobility in the room and close SBA when stepping over the threshold of the shower. Pt much steadier today. OT- Balance Assessment Sitting Balance and Reactions Static Sitting Balance Ability Normal Dynamic Sitting Balance Ability Good Standing Balance and Reactions Static Standing Balance Ability Good Dynamic Standing Balance Ability Fair M8 OT- IP Objective Assessments Start: 09/21/21 11:48 Freq: Status: Active Protocol: Document 09/21/21 11:49 [facility] (Rec: 09/21/21 12:07 [facility] [id number]) OT Gross Range of Motion Upper Extremity Range of Motion Assessment Within Functional Limits OT Strength Upper Extremity Strength Assessment Within Functional Limits OT-Muscle Tone Assessment Muscle Tone WNL Yes M9 OT- IP Assessment and Plan Start: 09/21/21 11:48 Freq: Status: Active Protocol: Document 09/22/21 10:56 [facility] (Rec: 09/22/21 11:11 [facility] [id number]) OT Summary Assessment and Plan Potential Rehabilitation Potential Good Analytic Complexity at Evaluation Moderate Summary OT Impairments Balance,Functional Mobility, Dressing,Toileting,Bathing, Toilet Transfers,Shower Transfers,Activity Tolerance Progress Towards Goals Progressing Toward Goals Assessment Summary Pt getting closer to her baseline and OT goals. Pt to go home with her sister to assist and stay with her initially. Goals Grooming Goal Independent Dressing Goal Independent Toileting Goal Independent Bathing Goal Independent Toilet Transfer Goal Independent Days to Meet Goals 3 Frequency of Treatment Frequency Of Treatment Once a Day Treatment Plan OT Treatment Plan ADL Training,Functional Mobility,Patient/Family Education,Discharge Planning Other Treatment Recommendations and Next go over energy conservation Treatment Focus techniques Discharge Recommendations OT Discharge Recommendations Home with Assistance, Outpatient PT Home Equipment Needs shower chair Transportation Needs at Discharge Private Vehicle
--- NOTE | 2021-09-22 13:56 | P.DS_ITS ---
History of Present Illness History of Present Illness Date Patient Seen: 09/22/21 Chief complaint: Sick fever, headaches, Narrative: History of Present Illness History of Present Illness Date Patient Seen:?09/20/21 Time Patient Seen:?22:51 Narrative: Yulisa Hodges is a 60 y.o. relatively healthy female who had COVID-19 in early July which is now since resolved, presents with fevers chills, nausea and vomiting, and urinary frequency for the past 2 days.? She states she has stress incontinence due to childbirth and reconstructive surgeries and but it has worsened in the past 2 days.? Patient uses azo twice daily normally. She also states that she has been very fatigued such as after making her bed going into the living room and sitting on the couch for the better part of the day and getting very exhausted after washing dishes.? She continues to have no sense of smell that has been present since she contracted COVID-19. Chest x-ray done in the ED was unremarkable, appear to have some residual lower lung base findings.? CT of the abdomen and pelvis was unremarkable, ultrasound of the abdomen and pelvis indicated cholelithiasis without cholecystitis.? She was given on dose of IV piptaz, 40 mEq of potassium orally and 2 liters of IV NS. The patient was suspected of having a urinary tract infection, UA panel indicated large amounts of bacteria but did not meet criteria for culture.? She initially presented with a temperature of 101.1? to the ED, currently her temperature is 98.8?, blood pressure 137/97 heart rate 96 respiratory rate 36 o xygen saturation 97% on room air she weighs 84.3 kg with a BMI of 28.3.? She does have a white count of 12.2 with left shift, sodium 133 potassium 3.0 glucose 133 total bilirubin was 4.5 AST 99 ALT 111 albumin 3.3 lipase was normal procalcitonin was also normal.? UA was equivocal for an infection and not cultured, viral panel including COVID-19 PCR was negative. Discharge Providers Provider Date of admission: 09/20/21 21:57 Discharge Date: 09/22/21 Primary care physician: Lior Johnson DO Consults: 09/21/21 10:10 Consult to Occupational Therapy Evaluate & Treat Comment: Physician Instructions: Evaluate and treat Consult to Physical Therapy Evaluate & Treat Comment: Physician Instructions: Evaluate and Treat 09/21/21 11:28 Consult to Dietitian, Adult Routine Comment: Reason For Exam: dehydration, poor appetite Discharge provider: Carmela Reynolds, Summary Hospital Course Discharge Diagnosis: ?URINARY TRACT INFECTION.? LIKELY GRAM-NEGATIVE BACTERIA. DISCHARGE ON A NTIBIOTICS X 7 DAY ?POSSIBLE SEPSIS.? PRESENT ON ARRIVAL.? ASSOCIATED WITH URINARY TRACT INFECTION. RESOLVED ?ANEMIA.? VITAMIN DEFICIENCY LIKELY. DISCHARGED ON VITAMIN THERAPY ?HYPOKALEMIA.? MULTIFACTORIAL. RESOLVED ?OVERWEIGHT.? BMI OF 28 ? CHOLELITHIASIS.? INCIDENTAL FINDING.? FURTHER MANAGEMENT OUTPATIENT ?ELEVATED LIVER ENZYMES HAD CONSIDERED TRANSIENT CHOLEDOCHOLITHIASIS. NO INP ATIENT TREATMENT INDICATED ?GENERALIZED WEAKNESS.? ? COULD HAVE BEEN ASSOCIATED WITH URINARY TRACT INFECTION TRACT INFECTION PHYSICAL AND MED TO EXHAUSTION/BURNOUT. RECOMMENDATION TO PATIENT TO TAKE TIME OFF WORK POSSIBLE ANXIETY. ON TRAZODONE AT HOME Hospital Course: THIS IS A 58-YEAR-OLD FEMALE ADMITTED TO THE HOSPITAL WITH SIGNS OF SEPSIS A SSOCIATED WITH URINARY TRACT INFECTION. PATIENT REPORTED SIGNIFICANTLY WELL SHOWING SIGNS ANXIETY WELL PHYSICAL AND MENTAL EXHAUSTION PATIENT WAS TREATED FOR THE URINARY TRACT INFECTION WITH IV ANTIBIOTICS. SHE WILL BE DISCHARGED TO HOME ON ORAL ANTIBIOTICS. A SHORT COURSE OF DIFLUCAN WILL BE ORDERED TO DECREASE [place]ETT OF YEAST INFECTION. SHE REPORTED EPISODE OF HIS INFECTION WHILE ON ANTIBIOTIC THERAPY. ALSO, ELEVATED LIVER ENZYME NOTED WITH ABDOMEN PAIN AND ADMISSION ABDOMINAL IMAGING DID SHOW CHOLELITHIASIS WITHOUT CHOLECYSTITIS SHE WILL NEED TO FOLLOW UP WITH OUTPATIENT PROVIDERS AND BE REFERRED TO A GENERAL SURGERY FOR POSSIBLE ELECTIVE CHOLECYSTECTOMY IF INDICATED CLINICALLY. PATIENT HAS SOME ELEVATED LIVER ENZYME WHICH HAS BEEN IMPROVING. A DISCOLORED BEEN DUE TO TRANSIENT CHOLEDOCHOLITHIASIS SIGN OF ANXIETY AND POSSIBLE PHYSICAL AND MENTAL BURNOUT NOTED. RECOMMENDED PATIENT TO REMAIN OFF FOR WORK FOR A FEW WEEKS TO ALLOW HERSELF TO RECUPERATE MENTALLY PHYSICALLY IF POSSIBLE. SHE SHOULD REMAIN OFF OF WORK FOR A DURATION OF 4-6 WEEKS IF POSSIBLE SHE WOULD BE DISCHARGED WITH HOME HEALTH FOR PHYSICAL THERAPY TO HELP DEVELOPING PHYSICAL EXERCISE PROGRAM SHE MIGHT ALSO NEED TO SEE A DIETITIAN OUTPATIENT ADDITIONAL MANAGEMENT WILL BE DEFERRED TO OUTPATIENT PROVIDERS Status at Discharge Cognitive/behavioral status at discharge: oriented Functional status at discharge: independent ambulation Overall status at discharge: patient is back to baseline Time Spent with Patient Time spent: Greater than 30 minutes Exam Vital Signs (past 8 hours): - 09/22/21 08:00 09/22/21 08:42 09/22/21 11:32 Temperature 97.5 F L Pulse Rate 94 H Respiratory Rate 17 Blood Pressure 140/70 Pulse Oximetry 94 92 93 09/22/21 12:00 Temperature 99.3 F Pulse Rate 90 Respiratory Rate 16 Blood Pressure 138/75 Pulse Oximetry 92 Oxygen Delivery Method Nasal Cannula Oxygen Flow Rate 0 Narrative Exam Narrative: NO ACUTE DISTRESS.? PATIENT IS ALERT ORIENTED X3. HEAD ATRAUMATIC NORMOCEPHALIC NECK : SUPPLE WITHOUT ADENOPATHY NO CAROTID BRUITS EYE:? EOMI, PERRLA, NORMAL CONJUNCTIVA; NO JAUNDICE CHEST:? REGULAR RATE.? ? NO RUBS.? PMI IS NON DISPLACED.? NO MURMURS; NORMAL S1- S2 PULMONARY:? DECREASED BS OVER THE BASES.? MILD BIBASILAR CRACKLES NOTED; NO INCREASED DULLNESS TO PERCUSSION ABDOMEN:? SOFT.? NONTENDER.? NONDISTENDED.? BOWEL SOUNDS ARE PRESENT IN ALL 4 QUADRANTS.? NO MASS. EXTREMITIES: NO EDEMA..? NO CYANOSIS CLUBBING NOTED. NEURO:? CRANIAL NERVES 2-12 GROSSLY INTACT. NO FOCAL NEUROLOGICAL DEFICIT NOTED. MSK:? NORMAL RANGE OF MOTION FOR AGE.? NO JOINT EFFUSION. SKIN:? NORMAL FOR ETHNICITY; NO ECCHYMOSIS.? NO LESION. ? GOOD? [place]UR[place].; NO RASHES :? NORMAL EXTERNAL GENITALIA. PSYCH :? APPROPRIATE MOOD AND AFFECT.? ALERT AWAKE ORIENTED X3 Objective Labs Result Diagrams: 09/22/21 05:00 09/22/21 05:00 Labs: Laboratory Results - last 24 hr 09/22/21 09/22/21 09/22/21 05:00 05:00 05:00 WBC 9.2 RBC 3.82 L Hgb 11.5 L Hct 33.6 L MCV 88.1 MCH 30.2 MCHC 34.3 RDW 13.8 Plt Count 249 Neut % (Auto) 72.1 Lymph % (Auto) 12.7 L [place] % (Auto) 5.7 Eos % (Auto) 9.3 H Baso % (Auto) 0.2 Neut # (Auto) 6600 Lymph # (Auto) 1200 [place] # (Auto) 500 Eos # (Auto) 900 H Baso # (Auto) 0 Sodium Potassium Chloride Carbon Dioxide BUN Creatinine Estimated GFR BUN/Creatinine Ratio Glucose Calcium Iron 25 L TIBC 156 L % Saturation 16 Transferrin 82 L Total Bilirubin AST ALT Alkaline Phosphatase Total Protein Albumin Globulin Albumin/Globulin Ratio Vitamin B12 290 09/22/21 05:00 WBC RBC Hgb Hct MCV MCH MCHC RDW Plt Count Neut % (Auto) Lymph % (Auto) [place] % (Auto) Eos % (Auto) Baso % (Auto) Neut # (Auto) Lymph # (Auto) [place] # (Auto) Eos # (Auto) Baso # (Auto) Sodium 136 L Potassium 3.8 Chloride 106 Carbon Dioxide 27 BUN 10 Creatinine 0.55 Estimated GFR > 60.0 BUN/Creatinine Ratio 18.2 Glucose 104 Calcium 7.7 L Iron TIBC % Saturation Transferrin Total Bilirubin 1.9 H AST 48 H ALT 73 H Alkaline Phosphatase 157 H Total Protein 5.2 L Albumin 2.5 L Globulin 2.7 Albumin/Globulin Ratio 0.9 L Vitamin B12 PFSH Medical History (Updated 09/20/21 @ 23:00 by CASEY Pearl) Arthritis of knee COVID-19 Depression Healthy adult History of COVID-19 Stress incontinence Surgical History (Updated 09/20/21 @ 23:00 by CASEY Pearl) H/O colonoscopy H/O vein stripping History of vaginal hysterectomy Hx of hysterectomy Family History (Updated 09/20/21 @ 23:14 by CASEY Pearl) Mother Dementia Father Alive and well Family/Other Liver cancer Social History household members: none Smoking Status: Former smoker Discharge Plan Discharge Plan Patient Disposition: Home Health Service Nursing Discharge Comment: OKAY FOR PATIENT TO STAY OFF WORK FOR 4-6 WEEKS DUE TO SIGNS OF PHYSICAL AND MENTAL EXHAUSTION/BURNOUT. Discharge orders & Medications Prescriptions: New benzonatate 100 mg Capsule 200 mg PO TID PRN (Reason: COUGH) Qty: 20 0RF Bacid 1 billion cell- 250 mg Tablet 1 ea PO TIDWM Qty: 90 0RF multivitamin with iron Tablet 1 tab PO DAILY Qty: 60 0RF vitamin I00-ohiro acid 500-400 mcg tablet 1 tab PO DAILY Qty: 60 0RF Rx Instructions: administer with a meal cholecalciferol (vitamin D3) [Vitamin D3] 25 mcg (1,000 unit) tablet,chewable 25 mcg PO DAILY Qty: 60 0RF cefdinir 300 mg capsule 300 mg PO BID Qty: 14 0RF fluconazole [Diflucan] 100 mg tablet 100 mg PO Q48H Qty: 3 0RF Continued trazodone 100 mg tablet 100 mg BEDTIME 0RF bupropion HCl 150 mg tablet extended release 24 hr 150 mg PO DAILY 0RF latanoprost 0.005 % drops 1 drp EYE-BOTH DAILY 0RF Follow up/Referrals: Lior Johnson DO [Primary Care Provider] - Discharge Data Primary Care Provider: Lior Johnson Attending Provider: Jessi Trujillo VTE Deep Vein Thrombosis/Pulmonary Embolism Present on Admission: No
--- NOTE | 2021-09-22 15:34 | PT.IPTN ---
Physical Therapy Treatment Note M2 PT-IP Current Condition Start: 09/21/21 11:20 Freq: NEEDED Status: Active Protocol: Document 09/22/21 15:36 SP (Rec: 09/22/21 16:20 SP [id number]) Physical Therapy Current Condition Current Condition Evaluation Date 09/21/21 Treatment Diagnosis UTI, sepsis, B hip pain, impaired balance and gait Onset Date 09/20/21 M3 PT-IP Subjective Start: 09/21/21 11:20 Freq: NEEDED Status: Active Protocol: Document 09/22/21 15:36 SP (Rec: 09/22/21 16:20 SP [id number]) Subjective Physical Therapy Visit Type Type Treatment Note Visit Start Time 14:47 Visit Stop Time 15:34 Total Visit Minutes 47 Notes Pt reports her sister is going to stay with her for few days but sister does have a PT appt needs to leave to go to tomorrow so will be home alone . Vitas during tx: seated BP 138/75, HR 90, SaO2 92% on RA, reports little dizzy initially sitting up at EOB but recovered within seconds. Number of ALEMITE OPERATOR Visits 1 Physical Therapy Visit Comments Patient Comments Pt willing to participate with therapy. Pt reported has been having tingling all over body , unsure why. She reports when walks her knees and feet tend to angle inward/turn in and gets back and hip pain that limits her walking and almost at times immediate need to sit down for safety for not falling. Patient Goals Improve balance walking and not having to hold onto furniture. Therapy Pain Assessment Pain Present Pain Present Pain Reported Location headache Intensity 4 Scale Used frontal DEWITT, not quantified M4 PT-IP Mobility and Gait Start: 09/21/21 11:20 Freq: NEEDED Status: Active Protocol: Document 09/22/21 15:36 SP (Rec: 09/22/21 16:20 SP [id number]) PT-Bed Mobility Assessment Supine to Sit Supine to Sit Independent Sit to Supine Sit to Supine Independent PT-Transfer Assessment Sit to and From Stand Sit to and from Stand Standby Assistance,Use of Upper Extremities Equipment Transfer Assistive Device Gait Belt Orthotic/Prosthetic Devices or Brace: No Transfers Transfer Destination Bed Transfer Technique ambulated without AD, with SPC Transfer Ability Level of Assist Standby Assistance Comments Mobility Comments Pt I in bed mobility. Sit> stand SBA no AD, no LOB. Gait no AD across room and back to EOB 30 ft SBA ALEMITE OPERATOR managed IV pole throughout tx, cued upright posture interscap stabilizer and TA engagement for balance support and assist LBP with awareness of increased MARQUISE space between BLE. Pt progressed gait into hallway SBA>CGA mild trunk deviations during gait speed quick stop/ pivots/ step over and around objects during DGI balance assessment, with noted sway but self recovery with CGA throughout, no LOB. Pt improved with use of SPC rest of gait to stairs, completed stairs and back with 3 stop stand rest recovery decreased strength and endurance with elevated breath rate, recovery normal breath rate within 10sec. Pt returned to bed when arrived in room. ALEMITE OPERATOR educated recommending outpt PT for women's health with past medical history of stress incontinence and improve strength and balance with LRAD with pt in agreement . She said her sister can take her or use public transportation if unable to drive, will ask nursing if cleared to drive at this time. Pt agreeable to use of SPC and will call sister will get one on her way to pick her up. Pt is ok to return home with sister to assist her as needed. Gait Assessment Gait Gait Assistance Required: Standby Assistance,Contact Guard Assist Distance (Feet) 400 Able to Maintain Weight Bearing Status Yes During Gait Assistive Devices Assistive Device None,Gait Belt,Straight Cane Orthotic/Prosthetic Devices or Brace: No Gait Deviations General Gait Pattern Antalgic,Lateral Trunk Lean, Narrow Based Gait Factors Limiting Gait Function Factors Limiting Gait Function Decreased Activity Tolerance, Decreased Strength,Pain,Poor Balance,Respiratory Distress Comments Gait Comments see mobility comments DGI with mild deviations CGA for safety no LOB improved stability with SPC to SBA, see mobility comments. Stair Climbing Assessment Evaluation Level of Assist On Stairs Standby Assistance,Contact Guard Assistance Devices Stair Climbing Assistive Devices Left Railing,Right Railing Technique/Endurance Stair Climbing Direction Ascend and Descend Stair Climbing Technique Step Over Step Number of Steps Climbed 3 Stair Climbing Set # Repetitions (reps) 7 Comments Stair Climbing Comments completed 21 stairs to assimulate 2 flight stairs has to get into appt at home, cued slow descent and use of BUE on B HR for safety CG> SBA . Pt requires brief stop stand rest after ever 2 sets of stairs for breath recovery, due to increased breath rate. PT-Balance Assessment Sitting Balance and Reactions Static Sitting Balance Ability Normal Dynamic Sitting Balance Ability Good Standing Balance and Reactions Static Standing Balance Ability Fair Dynamic Standing Balance Ability Fair Device Used no AD, good SPC Functional Assessments Functional Tests Dynamic Gait Index , fall risk with out AD. see mobility comments M5 PT-IP Objective Assessments Start: 09/21/21 11:20 Freq: NEEDED Status: Active Protocol: Document 09/21/21 11:54 AW (Rec: 09/21/21 12:28 AW [id number]) Orientation Orientation/Cognition Level of Alertness Alert Orientation Name,Day of Week,Place, Situation Language Function Ability No Deficits Noted Safety Awareness Understands Safety Issues Memory Description No Deficits Noted Gross Range of Motion Lower Extremity ROM Assessment Within Functional Limits Strength Lower Extremity Strength Assessment Bilaterally Impaired Hip 4-/5 Knee 4+/5 Ankle 4+/5 Sensation Assessment Sensation Gross Sensation WNL M6 PT-IP Treatment Start: 09/21/21 11:20 Freq: NEEDED Status: Active Protocol: Document 09/22/21 15:36 SP (Rec: 09/22/21 16:20 SP [id number]) Physical Therapy Treatment Education Education Provided Safety M7 PT-IP Assessment and Plan Start: 09/21/21 11:20 Freq: NEEDED Status: Active Protocol: Document 09/22/21 15:36 SP (Rec: 09/22/21 16:20 SP [id number]) PT Summary Assessment and Plan Potential Rehabilitation Potential Good Status of Condition at Evaluation Evolving Summary Impairments Pain,Strength,Balance,Gait Progress Towards Goals Progressing Toward Goals Assessment Summary Pt is independent in bed mobility, close SBA to CGA during gait without AD, SBA for gaith with SPC approx 400 ft total this tx with stop stand rests for tiring and breath recovery. DGI indicating fall risk, see mobility comments. Pt is ok to return home with sister to assist her when medically cleared. Sister will get SPC for pt before arrives to use at home. ALEMITE OPERATOR recommended Outpt therapy for women's health for stress incontinence support, strength and balance training to improve toward funtional independence. Goals Bed Mobility Goal Independent Transfer Goal Independent Gait Goal Independent,Cane Gait Distance 250 Other Goals - up/down 12 steps with B rails SBA - improve ambulation to 250 feet with no AD IND Days to Meet Goals 5 Frequency of Treatment Frequency Of Treatment Once a Day Treatment Plan Physical Therapy Treatment Plan Transfer Training,Gait Training,Therapeutic Exercise, Balance Retraining,Discharge Planning,Hot or Cold Pack, Neuromuscular Re-ed Other Recommendations and Next Treatment functional strengthening, Focus balance activities, gait LRAD (continue SPC at this time for safety. Recommendations To Nursing Amount of Assist Needed Standby Assistance Discharge Recommendations PT Discharge Recommendations Home with Assistance, Outpatient PT Equipment Needed for Home Before SPC Discharge Transportation Needs at Discharge Private Vehicle
[2021-09-22] MEDS: ONDANSETRON 4 MG/2 ML INJ IV (17:23)
--- NOTE | 2021-09-22 19:59 | PC.NURSE ---
Discharge Note Patient A&O, VSS, RA. No complaints of pain/discomfort. Discharge information reviewed with patient by float nurse, all questions/concerns addressed. PIV discontinued. Patient taken down via wheelchair to POV.
== END 2021-09-22 19:45 | disposition home health service (06) ==
LOC: ED 21:56 → AC 21:58
PROVIDERS: Emergency Medicine; Hospitalist; Admitting Provider Nurse Practitioner Family; Emergency Provider Emergency Medicine; PCP Family Medicine; Visit Provider Nurse Practitioner Family
DX: R50.9 Fever, unspecified (principal); R51.9 Headache, unspecified; Z86.16 Personal history of COVID-19; R41.0 Disorientation, unspecified; N39.0 Urinary tract infection, site not specified; E87.6 Hypokalemia; D64.9 Anemia, unspecified; E66.3 Overweight; Z68.28 Body mass index [BMI] 28.0-28.9, adult; K80.20 Calculus of gallbladder without cholecystitis without obstruction; R74.8 Abnormal levels of other serum enzymes; R53.1 Weakness; F41.9 Anxiety disorder, unspecified; Z20.822 Contact with and (suspected) exposure to COVID-19
CPT/HCPCS: 36415; 71045; 74177; 76705; 80048; 80053; 81001; 82607; 83036; 83540; 83550; 83605; 83690; 84145; 85025; 87040; 87086; 87633; 94760; 96361; 96365; 96367; 96372; 96375; 97112; 97116; 97161; 97166; 97530; 97535; 99285; G0378; J0696; J1650; J2405; J2543; Q9967

== ENCOUNTER → 2022-12-31 13:47 | Outpatient (CLI) | payer OTHER, SELFPAY ==
[2021-09-20 22:09] VITALS: BMI 28.3
--- NOTE | 2022-12-31 | DI.MG.S_ITS ---
BILATERAL DIGITAL SCREENING MAMMOGRAM 3D/2D WITH CAD: 12/31/2022 Comparison is made to exams dated: 09/07/2019 mammogram, 11/23/2018 ultrasound, 11/23/2018 mammogram, 05/17/2018 mammogram, and 04/27/2018 mammogram - [facility]. Both breasts are heterogeneously dense, which may obscure small masses (category c / 51-75% glandular tissue). Current study was also evaluated with a Computer Aided Detection (CAD) system. No significant masses, calcifications, or other findings are seen in either breast. There has been no significant interval change. IMPRESSION: NEGATIVE There is no mammographic evidence of malignancy. A 1 year screening mammogram is recommended. Based on the Tyrer Cuzick model (a risk assessment model) the patient's lifetime risk is 9.3% and her 10 year risk is 4.3%. According to the ACR, ACS, and NCCN guidelines, an annual breast MRI exam along with mammogram is recommended if the patient's lifetime risk is 20% or greater. This exam was interpreted at Station ID: [id number]. NOTE: For mammograms, a report in lay terms will be sent to the patient. Approximately 15% of breast malignancies will not be visualized mammographically. In the management of a palpable breast mass, a negative mammogram must not discourage biopsy of a clinically suspicious lesion. Electronically Signed By: Raj harrington/karlene:12/31/2022 14:32:44 letter sent: Normal Exam ACR BI-RADS Category 1: Negative [id number]
--- NOTE | 2022-12-31 14:16 | DI.DEXA.S_ITS ---
Bone Density Report Name: DESIREE CORRALES Age: 62 Sex: Female Ethnicity: White Date of : 1960 Indication: postmenopausal; screening for osteoporosis; Referring Provider: SONYA CALVO Study: Bone densitometry was performed. Exam Date: December 31, 2022 Accession number: [id number] Bone Density: Region BMD T-score Z-score Classification AP Spine(L1, L2, L4) 1.280 2.2 3.9 Normal Femoral Neck (Left) 0.799 -0.5 1.0 Normal Total Hip (Left) 0.885 -0.5 0.7 Normal Femoral Neck (Right) 0.875 0.2 1.7 Normal Total Hip (Right) 0.877 -0.5 0.6 Normal Total Hip Mean 0.881 -0.5 0.7 Normal World Health Organization criteria for BMD impression classify patients as: Normal (T-score at or above -1.0), Osteopenia (T-score between -1.0 and -2.5), or Osteoporosis (T-score at or below -2.5). 10-year Fracture Risk: FRAX not reported because: All T-scores for Spine Total, Hip Total, Femoral Neck at or above -1.0 Impression: The patient has normal bone mass. Discussion: BONE DENSITY IS ABOVE THE MINIMUM DESIRABLE LEVEL AT ALL SKELETAL SITES TESTED. This patient?s bone mineral density is above the minimum desirable level (T-score -1.0 or better) at all sites measured. The patient should follow a healthful lifestyle (good nutrition with adequate calcium and vitamin D, and appropriate weight-bearing exercise). Follow-Up: Consider repeating this study in 5 years or sooner if there is some new clinical indication. Reported by: LEDY WARNER M.D. on 12/31/2022 2:10:00 PM.
== END ==
PROVIDERS: PCP Nurse Practitioner Family; Referring Provider Nurse Practitioner Family; Visit Provider Nurse Practitioner Family
DX: Z12.31 Encounter for screening mammogram for malignant neoplasm of breast (principal); Z13.820 Encounter for screening for osteoporosis; Z78.0 Asymptomatic menopausal state
CPT/HCPCS: 77063; 77067; 77080

== ENCOUNTER → 2023-11-09 15:06 | Outpatient (CLI) | payer OTHER, SELFPAY ==
[2021-09-20 22:09] VITALS: BMI 28.3
== END ==
LOC: CAR 15:08
PROVIDERS: PCP Nurse Practitioner Family; Referring Provider Nurse Practitioner Family; Visit Provider Nurse Practitioner Family
DX: R00.8 Other abnormalities of heart beat (principal)
CPT/HCPCS: 93242